=== PATIENT | male | born 1985 | race Caucasian/White ===

== ENCOUNTER → 2020-02-12 | Outpatient (CLI) | payer BC, SELFPAY | END | disposition home or self-care (01) | PROVIDERS: Visit Provider Family Medicine | DX: Z03.818 Encounter for observation for suspected exposure to other biological agents ruled out (principal) | CPT/HCPCS: 87635; U0003 ==

== ENCOUNTER → 2022-03-02 | Outpatient (CLI) | payer BC, SELFPAY ==
[2022-03-02 13:32] LABS: ALB/GLOB Ratio 1.3 RATIO (0.9-2.4); AST(SGOT) 30 U/L (15-37); Alanine Aminotransfer ALT/SGPT 40 U/L (16-61); Albumin, Serum 4.3 g/dL (3.2-5.0); Alkaline Phosphatase 66 U/L (45-117); Anion Gap 6 (5-15); BUN 9 mg/dL (7-18); BUN/Creat Ratio 9.6 RATIO (10-20); Calcium,Total 9.3 mg/dL (8.5-10.1); Chloride 106 mmol/L (98-107); Creatinine, Serum 0.94 mg/dL (0.70-1.30); EST Glomerular Filtration Rate 98 mL/min (>60); Est Glom Filt Rate - Afr Amer 118 mL/min (>60); Globulin 3.3 g/dL (2.2-4.2); Glucose 100 mg/dL (74-106); Protein, Total 7.6 g/dL (6.4-8.2); Sodium Level 137 mmol/L (136-145)
[2022-03-02 14:04] LABS: Hemoglobin A1c 5.2 % (3.8-5.6)
== END | disposition home or self-care (01) ==
LOC: BFHLAB 10:27
PROVIDERS: PCP Family Medicine; Visit Provider Family Medicine
DX: Z00.01 Encounter for general adult medical examination with abnormal findings (principal); R73.01 Impaired fasting glucose
CPT/HCPCS: 36415; 80053; 83036

== ENCOUNTER 2022-03-31 09:32 | Emergency (ER) | payer BC, SELFPAY ==
[2022-03-31 09:33] VITALS: BP 150/90; PULSE 102; RESP 16; TEMP 37.1; O2SAT 99; BMI 25.9
--- NOTE | 2022-03-31 10:01 | CT_ITS ---
STUDY: CT ABDOMEN AND PELVIS WITH CONTRAST REASON FOR EXAM: Male, 36 years old. rectal pain -- IV PO Contrast PINK TINGED MUCUS FROM RECTUM, INGUINAL HERNIA REPAIR, SMOKER RADIATION DOSAGE (If Supplied By Facility): CTDIvol = ( 12.79 ) mGy, DLP = ( 851.78 ) mGycm TECHNIQUE: Transaxial images were obtained from the dome of the diaphragm to the symphysis pubis with oral contrast. IV 100mL Isovue-300 was administered. Sagittal and coronal images were reconstructed. Individualized dose optimization techniques were used for this CT. COMPARISON: None. FINDINGS: The visualized lung bases are unremarkable. The liver is mildly enlarged at 17.84 cm. Normal liver parenchyma. No intrahepatic biliary duct dilatation or liver mass. Normal gallbladder and extrahepatic biliary system. The spleen is mildly enlarged, measuring 13 cm. The splenic parenchyma is normal. There is also prominence of the splenic and portal veins as well as multiple venous varices of the central abdomen, consistent with portal vein hypertension. Normal pancreas. Normal bilateral adrenal glands. Normal right kidney. Normal left kidney. . No hydronephrosis or renal masses. No visualized radiopaque stones. Normal visualized stomach. Normal small intestine. There is mild thickening of the posterior of the middle one third sigmoid colon with focal luminal narrowing, see image 95/132 series 2. Moderate circumferential thickening and lobulation of the wall/inner mucosa of the rectosigmoid junction down to the anus is also present see image #108/132 series 2. Acute sigmoiditis and proctitis is present likely inflammatory in nature. Mild perirectal inflammatory stranding and congestion of the vessels is also present. Close follow-up will be required to ensure the process resolves and does not represent an occult malignancy. Normal remaining aspects of the colon. No visualized colonic diverticula. No bowel dilatation or obstruction. No free air or free fluid. The appendix is visualized and appears normal. Normal abdominal aorta. Normal inferior vena cava. Normal retroperitoneum. Normal urinary bladder. Normal abdominal wall. Normal osseous structures. CT/Abdomen/Pelvis WITH Contrast IMPRESSION: 1. There is mild thickening of the posterior of the middle one third sigmoid colon with focal luminal narrowing, see image 95/132 series 2. Moderate circumferential thickening and lobulation of the wall/inner mucosa of the rectosigmoid junction down to the anus is also present see image #108/132 series 2. Acute sigmoiditis and proctitis is present likely inflammatory in nature. 2. Mild perirectal inflammatory stranding and congestion of the vessels is also present. 3. Close follow-up will be required to ensure the process resolves and does not represent an occult malignancy. 4. Normal remaining aspects of the colon. No visualized colonic diverticula. 5. Mild hepatomegaly and splenomegaly 6. Portal vein hypertension Electronically Signed: Miguel Mckeon MD at 12:27 EST ,
--- NOTE | 2022-03-31 10:02 | EX.ED.DYSGE1 ---
HPI History of Present Illness Chief Complaint: Other, Pain/Inj Detail of Chief Complaint: Rectal pain Informant: patient Onset/Context/Timing Onset: Days Context: Gradual Onset Current Severity: Mild Maximum Severity: Moderate Narrative Narrative: Patient presents with rectal pain for the past 5 days. He states he initially thought he had a hemorrhoid. He is tried some suppositories and [id number] creams without improvement. He states when he sits down to have a bowel movement he has extreme rectal pain. He has been passing some blood-tinged mucus. He had a low-grade fever on Wednesday. Has been having chills each evening. No urinary symptoms. [facility] Medical History (Updated 03/31/22 @ 13:[address] Carmina Cruz MD) Anxiety Medical History no medical history no medical history Home Medications ciprofloxacin HCl 500 mg tablet (Cipro) 500 mg PO BID #20 tabs 03/31/22 [Rx Last Taken Unknown] metronidazole 500 mg tablet 500 mg PO Q8H 10 days #30 tabs 03/31/22 [Rx Last Taken Unknown] sertraline 50 mg tablet 25 mg PO DAILY 03/31/22 [History Last Taken Unknown] Allergy/AdvReac Type Severity Reaction Status Date / Time No Known Allergies Allergy Verified 03/31/22 09:35 Surgical History History of inguinal hernia repair Social History Smoking Status: Current every day smoker tobacco type: cigarettes ROS ROS ED Constitutional Constitutional ED: Reports fever(s); Denies chills Eyes Eyes: Denies change in vision or discharge from eye(s) ENT ENT ED: Denies discharge from eye(s), rhinorrhea or sore throat Cardiovascular Cardiovascular: Denies chest pain or palpitations Respiratory/Chest Respiratory/Chest: Denies cough or dyspnea Gastrointestinal Gastrointestinal: Reports diarrhea and other Details: Rectal pain ; Denies abdominal pain, nausea or vomiting Genitourinary Genitourinary ED: Denies dysuria Musculoskeletal Musculoskeletal: Denies back pain or extremity pain Integumentary Denies Abrasions or rash Neurologic Neurologic: Denies headache(s) or weakness Allergic/Immunologic Allergic/Immunologic ED: Denies lip swelling or urticaria EXAM Physical Exam Const Vital Signs: 03/31/22 09:33 03/31/22 10:15 Temperature 98.7 F Temperature Source Temporal Pulse Rate 102 H Respiratory Rate 16 Respiratory Pattern Normal Blood Pressure 150/90 H Blood Pressure Mean 110 Pulse Ox 99 Oxygen Delivery Method Room Air Positive well nourished and well developed General Appearance ED: well developed HEENT Reports normocephalic and head/scalp atraumatic Eyes PERRL and EOMs intact bilaterally Neck supple Chest Wall inspection of chest normal and palpation of chest normal Resp normal respiratory effort and clear to auscultation bilaterally Cardio regular rate and regular rhythm GI non-tender Auscultation: hypoactive bowel sounds Palpation: soft Extremity normal to inspection Neuro oriented x3 and no sensory deficits noted Sensorium / Orientation: alert Motor Exam: strength 5/5 throughout Psych mental status grossly normal Skin no rashes or lesions noted MDM MDM MDM Narrative Medical decision making narrative: Lab work and urinalysis obtained. CT scan of the abdomen and pelvis with contrast ordered. Lab Data Attestation: I reviewed the patient's lab results. Labs: Laboratory Results - last 24 hr 03/31/22 03/31/22 03/31/22 10:10 10:15 10:15 WBC 5.9 RBC 4.85 Hgb 15.4 Hct 42.5 MCV 87.6 MCH 31.8 MCHC 36.2 H RDW Std Deviation 38.4 RDW Coeff of Leonides 11.9 Plt Count 212 MPV 9.6 Immature Gran % (Auto) 0.200 Neut % (Auto) 78.0 H Lymph % (Auto) 9.[address] [place] % (Auto) 11.5 H Eos % (Auto) 0.7 Baso % (Auto) 0.5 Absolute Neuts (auto) 4.6 Absolute Lymphs (auto) 0.54 L Nucleated RBC % 0 Sodium 135 L Potassium 3.6 Chloride 104 Carbon Dioxide 26.0 Anion Gap 5 BUN 10 Creatinine 0.87 Estim Creat Clear Calc 135.21 Est GFR (MDRD) Af Amer 129 Est GFR (MDRD) Non-Af 107 BUN/Creatinine Ratio 11.5 Glucose 105 Calcium 9.0 Urine Color Yellow Urine Clarity Clear Urine pH 6.0 Ur Specific [place] 1.015 Urine Protein 15 H Urine Glucose (UA) Normal Urine Ketones Negative Urine Occult Blood 10 H Urine Nitrite Negative Urine Bilirubin Negative Urine Urobilinogen 1 H Ur Leukocyte Esterase Negative Urine RBC 0-5 SEEN Urine WBC 0-5 SEEN Ur Squamous Epith Cells 0 SEEN Urine Bacteria 1+ Urine Mucus 3+ Radiography Diagnostic Testing: Clinical Impression(s) from Imaging Studies Abdomen/Pelvis CT 03/31/22 10:01 IMPRESSION: 1. There is mild thickening of the posterior of the middle one third sigmoid colon with focal luminal narrowing, see image 95/132 series 2. Moderate circumferential thickening and lobulation of the wall/inner mucosa of the rectosigmoid junction down to the anus is also present see image #108/132 series 2. Acute sigmoiditis and proctitis is present likely inflammatory in nature. 2. Mild perirectal inflammatory stranding and congestion of the vessels is also present. 3. Close follow-up will be required to ensure the process resolves and does not represent an occult malignancy. 4. Normal remaining aspects of the colon. No visualized colonic diverticula. 5. Mild hepatomegaly and splenomegaly 6. Portal vein hypertension Electronically Signed: Miguel Mckeon MD at 12:27 EST Reading Location ID and State: [address] [place] [address] , Service support , Treatment and Re-Evaluation Narrative: CBC and chemistry studies unremarkable. Urinalysis reveals no acute infection. CT scan of the abdomen and pelvis reveals thickening of the middle one third of the sigmoid colon with focal narrowing. There is thickening at the rectosigmoid junction down to the anus. Patient be treated with Cipro and Flagyl. I will also refer him to GI. I advised him that he will need to follow-up for a scope once his acute infection is resolved to ensure no acute abnormalities. He voices understanding and agreement. Discharge Plan Triage Chief Complaint: Other, Pain/Inj ED Provider: Carmina Cruz Dx/Rx/DC Orders Clinical Impression: Colitis Instructions: ED Understanding Colitis Prescriptions: New ciprofloxacin HCl [Cipro] 500 mg tablet 500 mg PO BID Qty: 20 0RF metronidazole 500 mg tablet 500 mg PO Q8H 10 Days Qty: 30 0RF No Action sertraline 50 mg tablet 25 mg PO DAILY Label Comments: TAKE 1/2 (ONE-HALF) TO 1 (ONE) TABLET BY MOUTH DAILY Primary Care Provider: Frank Simmons Referrals: Frank Simmons DO [Primary Care Provider] - 1 Week Friend,Ananth, DO [Med Staff - Active Staff] - As soon as possible Activity Restrictions/Additional Instructions: Please follow-up with your primary care physician in 1 week. Return to the ER for any worsening symptoms or concerns. You have been referred to YENNIFER Mon for follow-up as well. Please follow-up with him within the next 1 to 2 months. Disposition Disposition: Home, Self Care
[2022-03-31 10:16] LABS: Squamous Epithelial Cells - UA 0 SEEN /hpf (0-5)
[2022-03-31 10:20] LABS: Color, Urine Yellow (Yellow); Glucose, Dipstick Normal (Normal); Ketone-Dipstick Negative (Negative); Leukocyte Esterase-Dipstick Negative /ul (Negative); Nitrite-Dipstick Negative (Negative); Occult Blood-Urine 10 /ul (Negative); Protein-Dipstick 15 mg/dl (Negative); Specific Gravity, Urine 1.015 (1.002-1.030); Urine Bilirubin Dipstick Negative (Negative); Urine Clarity Clear (Clear); Urine Urobilinogen 1 mg/dl (Normal)
[2022-03-31] MEDS: 0.9% Normal Saline 1,000 ML 150 ML IV (10:20)
[2022-03-31 10:33] LABS: White Blood Cells 0-5 SEEN /hpf (0-5)
[2022-03-31 10:34] LABS: Bacteria 1+ /hpf (None Seen); Mucous, Urine 3+ /hpf (<or=2+); Red Blood Cells-Urine 0-5 SEEN /hpf (0-5)
[2022-03-31 10:43] LABS: Absolute Lymphocyte Count 0.54 X10^3/uL (0.83-4.51); Absolute Neutrophil Count 4.6 X10^3/uL (2.0-7.7); Basophil# 0.03 X10^3/uL; Basophil% 0.5 % (0-1); Eosinophil# 0.04 X10^3/uL; Eosinophils% 0.7 % (0-5); Hematocrit 42.5 % (40-54); Hemoglobin 15.4 g/dL (13.0-16.5); Lymphocyte # 0.54 X10^3/ul (0.83-4.51); Lymphocyte % 9.1 % (19-41); Mean Corp Hgb Conc 36.2 g/dL (32-36); Mean Corpuscular Hgb 31.8 pg (27.0-32.0); Mean Corpuscular Volume 87.6 fL (80-94); Mean Platelet Vol. 9.6 fl (6.2-12.0); Monocyte# 0.68 X10^3/uL; Monocyte% 11.5 % (0-10); NRBC Flagged by Analyzer 0 % (0-5); Neutrophil # 4.62 X10^3/uL (2.7-7.7); POSITIVE DIFFERENTIAL YES; Platelet Count 212 K/mm3 (150-450); RBC Distribution Width CV 11.9 % (11.6-14.6); RBC Distribution Width SD 38.4 fl (35.1-43.9); Red Blood Count 4.85 M/mm3 (4.6-6.2); White Blood Count 5.9 K/mm3 (4.4-11.0)
[2022-03-31 10:45] LABS: Differential Indicated SCAN CRITERIA MET
[2022-03-31 10:57] LABS: Anion Gap 5 (5-15); BUN 10 mg/dL (7-18); BUN/Creat Ratio 11.5 RATIO (10-20); Chloride 104 mmol/L (98-107); Creatinine, Serum 0.87 mg/dL (0.70-1.30); EST Glomerular Filtration Rate 107 mL/min (>60); Est Glom Filt Rate - Afr Amer 129 mL/min (>60); Estimated Creatinine Clearance 135.21 ml/min; Glucose 105 mg/dL (74-106); Potassium 3.6 mmol/L (3.5-5.1); Sodium Level 135 mmol/L (136-145)
[2022-03-31] MEDS: metroNIDAZOLE 500 MG Tablet PO (14:01)
[2022-03-31] MEDS: Ciprofloxacin 500 MG Tablet PO (14:01)
[2022-03-31 14:06] VITALS: PULSE 72; RESP 16; O2SAT 100
== END 2022-03-31 14:06 | disposition home or self-care (01) ==
PROVIDERS: Emergency Provider Emergency Medicine; PCP Family Medicine; Visit Provider Emergency Medicine
DX: K52.9 Noninfective gastroenteritis and colitis, unspecified (principal); F17.210 Nicotine dependence, cigarettes, uncomplicated
CPT/HCPCS: 74177; 80048; 81001; 85025; 99283; J7030; Q9967

== ENCOUNTER 2022-04-02 20:14 | Emergency (ER) | payer BC, SELFPAY ==
[2022-04-02 20:15] VITALS: BP 138/73; PULSE 89; RESP 18; TEMP 36.7; O2SAT 97; BMI 25.9
--- NOTE | 2022-04-02 20:39 | EDS_ITS ---
HPI HPI - GI History of Present Illness Chief Complaint: Abd Pain Informant: patient Abdominal Pain/Flank Pain Onset: Weeks (1) Context: Gradual Onset Timing: Continuous and Waxes and wanes Quality: Aching, Cramping and Sharp Location: - (Lower abdomen radiating into rectum, as well as epigastric pain) Nausea/Vomiting/Emesis GI Symptom: Positive for Nausea (when increased pain); Negative for Vomiting Diarrhea/Melena/Hematochezia GI Symptom: Positive for Diarrhea and Hematochezia Onset: Weeks (1) Stool Quality: Positive for Loose Associated Symptoms Associated Symptoms: Positive for - (brown discoloration and difficult to get started); Negative for Dysuria, Frequency, Hematuria or Urgency Narrative Narrative: Patient presents for continued discomfort in his lower abdomen and now epigastrium radiating up into his chest along with hiccups and belching at times, he was seen here for this 2 days ago and had labs and a CT that showed nonspecific colitis favoring inflammatory causes and a white blood count around 5.8. He was prescribed Cipro and Flagyl empirically and referred to GI, he states the antibiotics are not fixing anything and I am not getting better. He has tenesmus, occasional blood with diarrhea and mucus in the diarrhea as well. No fevers or chills. No suspicious food intake prior to this or recent travel out of the area. Today was the first day he ate in the last couple days and is seem to be worse after that. He also states that his urine has looked brownish, and he is thinking this may be due to his antibiotics since it started after the started those, he is on day #3 of the antibiotics. [facility] Medical History Anxiety Home Medications ciprofloxacin HCl 500 mg tablet (Cipro) 500 mg PO BID #20 tabs 03/31/22 [Rx Last Taken Unknown] metronidazole 500 mg tablet 500 mg PO Q8H 10 days #30 tabs 03/31/22 [Rx Last Taken Unknown] sertraline 50 mg tablet 25 mg PO DAILY 03/31/22 [History Last Taken Unknown] dicyclomine 10 mg capsule 20 mg PO Q6H PRN PRN abdominal discomfort #30 CAPSULES 04/02/22 [Rx Last Taken Unknown] promethazine 25 mg tablet 25 mg PO Q6H PRN PRN Nausea #20 TABLETS 04/02/22 [Rx Last Taken Unknown] Allergy/AdvReac Type Severity Reaction Status Date / Time No Known Allergies Allergy Verified 04/02/22 20:17 Surgical History History of inguinal hernia repair Social History Smoking Status: Current every day smoker tobacco type: cigarettes ROS ROS ED Constitutional Constitutional ED: Denies chills or fever(s) Eyes Eyes: Denies change in vision or diplopia ENT ENT ED: Denies rhinorrhea or sore throat Cardiovascular Cardiovascular: Reports chest pain; Denies palpitations Respiratory/Chest Respiratory/Chest: Denies cough or dyspnea Gastrointestinal Gastrointestinal: Reports as per HPI, abdominal pain, diarrhea, hematochezia and nausea; Denies vomiting Genitourinary Genitourinary ED: Denies dysuria or hematuria Musculoskeletal Musculoskeletal: Denies back pain or neck pain Integumentary Denies abscess or rash Neurologic Neurologic: Denies headache(s), paresthesias or weakness Psychiatric Psychiatric: Denies anxiety or suicidal thoughts EXAM Physical Exam Const Vital Signs: 04/02/22 20:15 04/02/22 21:45 Temperature 98.0 F Temperature Source Temporal Pulse Rate 89 79 Respiratory Rate 18 16 Blood Pressure 138/73 H 121/71 H Blood Pressure Mean 94 87 Pulse Ox 97 97 Oxygen Delivery Method Room Air Room Air Positive well nourished and well developed Constitutional Narrative: Well-appearing in no distress General Appearance ED: well developed and NAD HEENT Reports moist mucous membranes normocephalic and atraumatic Eyes PERRL and EOMs intact bilaterally Neck full ROM and supple Resp normal respiratory effort and clear to auscultation bilaterally Cardio regular rate, regular rhythm and no murmurs Rate: Negative for tachycardic GI non-distended GI Narrative: Mild tenderness epigastrium and the lower abdomen. No guarding or rebound tenderness. Auscultation: normoactive bowel sounds Palpation: soft Back/Spine no CVA tenderness General Back: other FROM Extremity normal to inspection General Extremety ED: Negative for edema, pulses abnormal or tenderness General Extremity: Negative for edema or pulses abnormal Neuro oriented x3, CN's II-XII intact bilaterally and no sensory deficits noted Sensorium / Orientation: awake and alert Motor Exam: strength 5/5 throughout Psych mental status grossly normal and thought process normal Skin no rashes or lesions noted and no wounds MDM MDM MDM Narrative Medical decision making narrative: Given the patient's white blood count [address] and his [address] results, as I discussed with him I am not surprised that the antibiotics have not fixed this, it is a version of empiric treatment given that infectious etiologies are in the differential although less likely in his particular scenario at this time. I discussed the need for colonoscopy and further GI evaluation which does not need to be done emergently. In the meantime since he was having discolored urine, I repeated his labs to trend them and did a urinalysis well giving him IV fluids and medications for his symptoms. His labs are still normal with no significant change in his white blood count. Liver enzymes and lipase normal. Still waiting for him to provide a urine if he wants to at this time. Patient did feel a little better with IV fluids, Zofran, Toradol, dicyclomine, and a GI cocktail containing simethicone. Since he has started the antibiotics I recommend finishing the course. Think this is less likely Salmonella, Shigella, or other acute bacterial etiology but he is covering nose with the antibiotics he is on. Recommend calling GI after the holiday to follow-up with soon as possible. We will prescribe him dicyclomine to use as needed for pain as well as Phenergan for nausea. Lab Data Attestation: I reviewed the patient's lab results. Labs: Laboratory Results - last 24 hr 04/02/22 04/02/22 20:45 20:45 WBC 6.8 RBC 4.72 Hgb 14.5 Hct 40.9 MCV 86.7 MCH 30.7 MCHC 35.5 RDW Std Deviation 37.2 RDW Coeff of Leonides 11.6 Plt Count 223 MPV 9.7 Immature Gran % (Auto) 0.300 Neut % (Auto) 72.1 H Lymph % (Auto) 15.8 L [place] % (Auto) 9.1 Eos % (Auto) 2.4 Baso % (Auto) 0.3 Absolute Neuts (auto) 4.9 Absolute Lymphs (auto) 1.07 Nucleated RBC % 0 Sodium 138 Potassium 3.5 Chloride 104 Carbon Dioxide 23.0 Anion Gap 11 BUN 13 Creatinine 0.89 Estim Creat Clear Calc 132.17 Est GFR (MDRD) Af Amer 126 Est GFR (MDRD) Non-Af 104 BUN/Creatinine Ratio 14.6 Glucose 102 Calcium 8.9 Total Bilirubin 0.70 AST 25 ALT 30 Alkaline Phosphatase 60 Total Protein 7.3 Albumin 3.6 Globulin 3.7 Albumin/Globulin Ratio 1.0 Lipase 57 L Discharge Plan Triage Chief Complaint: Abd Pain ED Provider: Ranjit Mccullough Dx/Rx/DC Orders Clinical Impression: Colitis Instructions: ED Understanding Colitis Prescriptions: New dicyclomine 10 mg capsule 20 mg PO Q6H PRN PRN (Reason: abdominal discomfort) Qty: 30 0RF promethazine [promethazine] 25 mg tablet 25 mg PO Q6H PRN PRN (Reason: Nausea) Qty: 20 0RF No Action sertraline 50 mg tablet 25 mg PO DAILY Label Comments: TAKE 1/2 (ONE-HALF) TO 1 (ONE) TABLET BY MOUTH DAILY ciprofloxacin HCl [Cipro] 500 mg tablet 500 mg PO BID Qty: 20 0RF metronidazole 500 mg tablet 500 mg PO Q8H 10 Days Qty: 30 0RF Primary Care Provider: Frank Simmons Referrals: Frank Simmons DO [Primary Care Provider] - Ananth Parish DO [Med Staff - Active Staff] - As soon as possible (call for appt) Disposition Disposition: Home, Self Care
[2022-04-02] MEDS: Ondansetron 4 MG/2 ML Vial IV (20:48)
[2022-04-02] MEDS: Mag Hydrox/Al Hydrox/Simeth 30 ML UDC PO (20:48)
[2022-04-02] MEDS: Ketorolac 15 MG/ML Vial IV (20:49)
[2022-04-02] MEDS: Dicyclomine 10 MG Capsule 20 MG PO (20:49)
[2022-04-02] MEDS: 0.9% Normal Saline 1,000 ML 1000 ML IV (20:53)
[2022-04-02 20:54] LABS: Absolute Lymphocyte Count 1.07 X10^3/uL (0.83-4.51); Absolute Neutrophil Count 4.9 X10^3/uL (2.0-7.7); Basophil# 0.02 X10^3/uL; Basophil% 0.3 % (0-1); Eosinophil# 0.16 X10^3/uL; Eosinophils% 2.4 % (0-5); Hematocrit 40.9 % (40-54); Hemoglobin 14.5 g/dL (13.0-16.5); Lymphocyte # 1.07 X10^3/ul (0.83-4.51); Lymphocyte % 15.8 % (19-41); Mean Corp Hgb Conc 35.5 g/dL (32-36); Mean Corpuscular Hgb 30.7 pg (27.0-32.0); Mean Corpuscular Volume 86.7 fL (80-94); Mean Platelet Vol. 9.7 fl (6.2-12.0); Monocyte# 0.62 X10^3/uL; Monocyte% 9.1 % (0-10); NRBC Flagged by Analyzer 0 % (0-5); Neutrophil % 72.1 % (47-70); Platelet Count 223 K/mm3 (150-450); RBC Distribution Width CV 11.6 % (11.6-14.6); RBC Distribution Width SD 37.2 fl (35.1-43.9); Red Blood Count 4.72 M/mm3 (4.6-6.2); White Blood Count 6.8 K/mm3 (4.4-11.0)
[2022-04-02 21:22] LABS: AST(SGOT) 25 U/L (15-37); Alanine Aminotransfer ALT/SGPT 30 U/L (16-61); Albumin, Serum 3.6 g/dL (3.2-5.0); Alkaline Phosphatase 60 U/L (45-117); Anion Gap 11 (5-15); BUN 13 mg/dL (7-18); BUN/Creat Ratio 14.6 RATIO (10-20); Calcium,Total 8.9 mg/dL (8.5-10.1); Chloride 104 mmol/L (98-107); Creatinine, Serum 0.89 mg/dL (0.70-1.30); EST Glomerular Filtration Rate 104 mL/min (>60); Est Glom Filt Rate - Afr Amer 126 mL/min (>60); Estimated Creatinine Clearance 132.17 ml/min; Globulin 3.7 g/dL (2.2-4.2); Glucose 102 mg/dL (74-106); Lipase 57 U/L (73-393); Potassium 3.5 mmol/L (3.5-5.1); Protein, Total 7.3 g/dL (6.4-8.2); Sodium Level 138 mmol/L (136-145)
[2022-04-02 21:45] VITALS: BP 121/71; PULSE 79; RESP 16; O2SAT 97
[2022-04-02 21:51] LABS: Color, Urine Amber (Yellow); Glucose, Dipstick Normal (Normal); Leukocyte Esterase-Dipstick 100 /ul (Negative); Nitrite-Dipstick Positive (Negative); Occult Blood-Urine 10 /ul (Negative); Protein-Dipstick 30 mg/dl (Negative); Urine Clarity Sl. Cloudy (Clear); Urine Urobilinogen 1 mg/dl (Normal)
[2022-04-02 21:57] LABS: Urine Bilirubin Dipstick 1 mg/dL (Negative)
[2022-04-02 22:01] LABS: Ketone-Dipstick 150 mg/dl (Negative)
[2022-04-02 22:03] LABS: Red Blood Cells-Urine 0-5 SEEN /hpf (0-5); Squamous Epithelial Cells - UA 0-5 SEEN /hpf (0-5); White Blood Cells 0-5 SEEN /hpf (0-5)
[2022-04-02 22:04] LABS: Bacteria 2+ /hpf (None Seen); Mucous, Urine 1+ /hpf (<or=2+)
== END 2022-04-02 22:12 | disposition home or self-care (01) ==
PROVIDERS: Emergency Provider Emergency Medicine; PCP Family Medicine; Visit Provider Emergency Medicine
DX: K52.9 Noninfective gastroenteritis and colitis, unspecified (principal); F17.210 Nicotine dependence, cigarettes, uncomplicated
CPT/HCPCS: 80053; 81001; 83690; 85025; 87086; 96374; 96375; 99282; J7030; A4216; J2405

== ENCOUNTER 2022-04-03 17:22 | Emergency (ER) | payer BC, SELFPAY ==
[2022-04-03 17:28] VITALS: BP 119/88; PULSE 101; RESP 18; TEMP 35.8; O2SAT 98; BMI 25.9
--- NOTE | 2022-04-03 18:05 | US_ITS ---
STUDY: ABDOMINAL ULTRASOUND - RIGHT UPPER QUADRANT REASON FOR VISIT: Male, 36 years old. ABDOMEN PAIN PAIN-midline TECHNIQUE: Ultrasound evaluation of the right upper quadrant was performed with real-time and static nye-scale imaging. TECHNICAL QUALITY: Adequate. COMPARISON: None FINDINGS: Liver: There is normal echogenicity of the liver. The bile ducts are within normal limits. There is hepatic color flow. The direction of portal flow is hepatopetal. There is no demonstrated mass lesion. Gallbladder: Normal distended gallbladder. The gallbladder wall measures 3 mm. There is a negative sonographic Andres''s sign. There is no pericholecystic fluid. There are no gallstones. Common Bile Duct (C.B.D.): The common bile duct measures ( in mm): 3 Pancreas: Normal size of the head, body of the pancreas. There is normal echogenicity of the pancreas. There is no demonstrated pancreatic mass or cyst. Right Kidney: Normal size of the right kidney. The right kidney measures 12.4 cm. . Normal renal cortex. There is no demonstrated renal mass or cyst. There is no right hydronephrosis. Aorta: It is not visualized. There is too much overlying bowel gas. . US/Gallbladder IMPRESSION: No acute findings. 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 (i.e. Measuring a kidney on an US does not correlate with an exact same measurement on a CT.) Electronically Signed: Venu Miller MD at 19:05 EST ,
--- NOTE | 2022-04-03 18:09 | EDS_ITS ---
HPI <CARLIE Byrnes - Last Filed: 04/03/22 19:51> History of Present Illness Chief Complaint: General Illness Narrative Narrative: 36-year-old male with history of anxiety, depression presents to the emergency department for the third time in the last 3 days. Patient states that on the , he was seen for abdominal pain, diarrhea, generalized body aches. Patient was diagnosed with inflammatory colitis. He was placed on Flagyl, Cipro. Patient was seen back in the emergency department yesterday, he was given Phenergan, Bentyl. His laboratory studies were grossly unremarkable, and he was told to follow-up with GI. Today, the patient states he feels generalized body aches, he still feels dehydrated. Patient states he does still have diarrhea however it is decreasing. He also complains of pain in the right upper quadrant. Total time of him being ill was 8 days today. He denies any fevers or has subjective chills. PFSH <CARLIE Byrnes - Last Filed: 04/03/22 19:51> PFSH Medical History Anxiety Home Medications ciprofloxacin HCl 500 mg tablet (Cipro) 500 mg PO BID #20 tabs 03/31/22 [Rx Last Taken Unknown] metronidazole 500 mg tablet 500 mg PO Q8H 10 days #30 tabs 03/31/22 [Rx Last Taken Unknown] sertraline 50 mg tablet 25 mg PO DAILY 03/31/22 [History Last Taken Unknown] dicyclomine 10 mg capsule 20 mg PO Q6H PRN PRN abdominal discomfort #30 CAPSULES 04/02/22 [Rx Last Taken Unknown] promethazine 25 mg tablet 25 mg PO Q6H PRN PRN Nausea #20 TABLETS 04/02/22 [Rx Last Taken Unknown] prednisone 20 mg tablet 60 mg PO DAILY 5 days #15 tabs 04/03/22 [Rx Last Taken Unknown] Allergy/AdvReac Type Severity Reaction Status Date / Time No Known Allergies Allergy Verified 04/03/22 17:27 Surgical History History of inguinal hernia repair Social History Smoking Status: Current every day smoker tobacco type: cigarettes ROS <CARLIE Byrnes - Last Filed: 04/03/22 19:51> ROS ED ROS Narrative Constitutional: Negative for weight loss, weakness. Positive for fever and chills Eyes: Negative for vision loss, vision change, double vision ENT: Negative for any sore throat, ear pain, congestion Cardiovascular: Negative for any chest pain, tightness. Positive palpitations Respiratory: Negative for any cough, sputum production, hemoptysis, dyspnea, dyspnea on exertion, orthopnea Gastrointestinal: Negative for any nausea, vomiting, constipation, blood in stool, blood in vomit. Positive for abdominal pain, diarrhea : Negative for any urinary frequency, dysuria, retention, blood in urine Muscle skeletal: Negative for any muscle joint pain, stiffness, arthralgias, neck pain, back pain. Positive for myalgias Neurological: Negative for any headache, syncope, numbness or tingling, dizziness Skin: Negative for any rashes, lumps, itching, abrasions, lacerations Psychiatric: Negative for any depression, anxiety, stress, suicidal ideation, homicidal ideation Hematologic: Negative for any easy bruising, excessive bruising, easy bleeding Allergies: Negative for any eczema, hives, rash EXAM <CARLIE Byrnes - Last Filed: 04/03/22 19:51> Physical Exam Narrative Exam Narrative: Vital signs reviewed. Patient appears to be in a position of comfort. Patient is in no distress. HEET: Head normocephalic atraumatic, TMs clear bilaterally. Posterior pharynx is clear, moist mucous membranes. Nares clear bilaterally. Neck: Supple with no lymphadenopathy or tenderness. No signs of meningismus, negative jolt sign. Cardiac: Regular rate and rhythm no murmurs gallops or rubs, equal peripheral pulses bilaterally. Respiratory: Lungs clear to auscultation bilaterally. No chest tenderness. Abdomen: Soft, nondistended. No abdominal bruit or pulsatile masses. No hepatosplenomegaly. Patient did have some tenderness to the right upper quadrant. Extremities: No peripheral edema, no signs of gross trauma or deformity. Active full range of motion of all extremities. Neuro: Cranial nerves II through XII intact, no focal neurological deficits. Skin: Clean dry and intact with no rash, purpura, petechiae, vesicles or pustules. Backs/flank: No CVA tenderness, no midline spinal tenderness, no deformity. Psych: Normal mood and affect. No SI, HI or acute psychosis. Const Vital Signs: 04/03/22 17:28 04/03/22 17:44 04/03/22 20:06 Temperature 96.4 F L Temperature Source Temporal Pulse Rate 101 H 75 Respiratory Rate 18 18 Respiratory Effort Normal Respiratory Pattern Normal Blood Pressure 119/88 H 138/72 H Blood Pressure Mean 98 Pulse Ox 98 100 Oxygen Delivery Method Room Air <Dr. Graham Villareal DO - Last Filed: 04/03/22 20:14> Physical Exam Const Vital Signs: 04/03/22 17:28 04/03/22 17:44 04/03/22 20:06 Temperature 96.4 F L Temperature Source Temporal Pulse Rate 101 H 75 Respiratory Rate 18 18 Respiratory Effort Normal Respiratory Pattern Normal Blood Pressure 119/88 H 138/72 H Blood Pressure Mean 98 Pulse Ox 98 100 Oxygen Delivery Method Room Air MDM <CARLIE Byrnes - Last Filed: 04/03/22 19:51> [facility] Lab Data Labs: Laboratory Results - last 24 hr 04/03/22 04/03/22 04/03/22 18:15 18:15 18:15 WBC 7.7 RBC 4.64 Hgb 14.3 Hct 40.1 MCV 86.4 MCH 30.8 MCHC 35.7 RDW Std Deviation 37.2 RDW Coeff of Leonides 11.7 Plt Count 253 MPV 9.4 Immature Gran % (Auto) 0.300 Neut % (Auto) 65.4 Lymph % (Auto) 20.0 [place] % (Auto) 11.6 H Eos % (Auto) 2.2 Baso % (Auto) 0.5 Absolute Neuts (auto) 5.0 Absolute Lymphs (auto) 1.53 Nucleated RBC % 0 Atypical Lymphocytes 1+ Platelet Estimate ADEQUATE RBC Morphology N CHROM Anisocytosis RARE Sodium 138 Potassium 3.6 Chloride 107 Carbon Dioxide 26.0 Anion Gap 5 BUN 9 Creatinine 0.87 Estim Creat Clear Calc 135.21 Est GFR (MDRD) Af Amer 129 Est GFR (MDRD) Non-Af 107 BUN/Creatinine Ratio 10.4 Glucose 106 Lactic Acid 0.9 Calcium 8.6 Total Bilirubin 0.60 AST 24 ALT 30 Alkaline Phosphatase 60 Total Protein 7.2 Albumin 3.5 Globulin 3.7 Albumin/Globulin Ratio 0.9 Lipase 75 Urine Color Urine Clarity Urine pH Ur Specific Baker Urine Protein Urine Glucose (UA) Urine Ketones Urine Occult Blood Urine Nitrite Urine Bilirubin Urine Urobilinogen Ur Leukocyte Esterase Urine RBC Urine WBC Ur Squamous Epith Cells Amorphous Sediment Urine Bacteria Urine Mucus 04/03/22 18:25 WBC RBC Hgb Hct MCV MCH MCHC RDW Std Deviation RDW Coeff of Leonides Plt Count MPV Immature Gran % (Auto) Neut % (Auto) Lymph % (Auto) [place] % (Auto) Eos % (Auto) Baso % (Auto) Absolute Neuts (auto) Absolute Lymphs (auto) Nucleated RBC % Atypical Lymphocytes Platelet Estimate RBC Morphology Anisocytosis Sodium Potassium Chloride Carbon Dioxide Anion Gap BUN Creatinine Estim Creat Clear Calc Est GFR (MDRD) Af Amer Est GFR (MDRD) Non-Af BUN/Creatinine Ratio Glucose Lactic Acid Calcium Total Bilirubin AST ALT Alkaline Phosphatase Total Protein Albumin Globulin Albumin/Globulin Ratio Lipase Urine Color Briseida Urine Clarity Sl. Cloudy Urine pH 6.5 Ur Specific Baker 1.020 Urine Protein 30 H Urine Glucose (UA) Normal Urine Ketones 150 A* Urine Occult Blood 10 H Urine Nitrite Positive H Urine Bilirubin 1 H Urine Urobilinogen Normal Ur Leukocyte Esterase 100 H Urine RBC 0-5 SEEN Urine WBC 5-10 SEEN Ur Squamous Epith Cells 0-5 SEEN Amorphous Sediment 1+ URATE Urine Bacteria RARE Urine Mucus 3+ Radiography Diagnostic Testing: Clinical Impression(s) from Imaging Studies Gallbladder Ultrasound 04/03/22 18:05 IMPRESSION: No acute findings. Note: Renal size measurements and size measurements of other organs etc may vary depending on modality and instrument operator dependent variations in measurements. (i.e. Measuring a kidney on an US does not correlate with an exact same measurement on a CT.) Electronically Signed: Venu Miller MD at 19:05 EST Reading Location ID and State: [facility] / [place] , Service support , Chest X-Ray 04/03/22 18:27 IMPRESSION: No radiographic evidence of acute cardiopulmonary disease. Electronically Signed: Landen Garza MD at 18:40 EST , Treatment and Re-Evaluation Narrative: Patient appears to be in minor distress, secondary to abdominal pain, nausea. Patient presents the [facility] apartment for ongoing symptoms such as diarrhea, abdominal pain. Patient did receive a CT scan of the abdomen pelvis on March. Patient did receive a full abdominal work-up. Patient's laboratory values show normal CBC, patient's chemistries were grossly unremarkable. Patient's lactic acid was negative. Patient's urinalysis was negative for any infection however did show some nitrites some ketones with 100 leukocyte esterase, however this is similar to the patient's urine yesterday will be sent for culture, patient's not have any urinary symptoms. This could be from dehydration. Patient's rapid COVID, influenza was unremarkable. Patient did receive a chest x-ray two-view which was inter by ER physician, this showed no acute cardiopulmonary disease. Patient also received an ultrasound of the right upper quadrant, this showed no acute findings. I did speak with Dr. Parish gastroenterology, he recommended the patient's stop the the antibiotics, he states steroids 60 mg daily for 5 days. He will given Solu-Medrol 125 mg here. He will also take the dicyclomine. He will see Dr. Parish within the next week. Patient is happy with plan of care, he was given return precautions. Patient stable for discharge. <Dr. Graham Villareal, DO - Last Filed: 04/03/22 20:14> [facility] Narrative Medical decision making narrative: This patient was seen with a PA/STRATEGIC PROCUREMENT MANAGER Individually assessed they patient including history and physical. I have reviewed everything on the chart that is available and agree with the documentation provided by the PA/STRATEGIC PROCUREMENT MANAGER including discussion about the assessment, treatment plan, discussion, and return precautions. Patient again today has lab work which is unremarkable. His chest x-ray on my interpretation shows no acute cardiopulmonary process and radiologist agree. Viral testing is negative. Right upper quadrant ultrasound is negative. Discussed with Dr. Parish who recommended starting the patient on steroids with Solu-Medrol given in the ER. He recommends prednisone 60 mg p.o. daily x5 days and treatment with dicyclomine. Dr. Friend will try to get him in for close follow-up. Lab Data Labs: Laboratory Results - last 24 hr 04/03/22 04/03/22 04/03/22 18:15 18:15 18:15 WBC 7.7 RBC 4.64 Hgb 14.3 Hct 40.1 MCV 86.4 MCH 30.8 MCHC 35.7 RDW Std Deviation 37.2 RDW Coeff of Leonides 11.7 Plt Count 253 MPV 9.4 Immature Gran % (Auto) 0.300 Neut % (Auto) 65.4 Lymph % (Auto) 20.0 [place] % (Auto) 11.6 H Eos % (Auto) 2.2 Baso % (Auto) 0.5 Absolute Neuts (auto) 5.0 Absolute Lymphs (auto) 1.53 Nucleated RBC % 0 Atypical Lymphocytes 1+ Platelet Estimate ADEQUATE RBC Morphology N CHROM Anisocytosis RARE Sodium 138 Potassium 3.6 Chloride 107 Carbon Dioxide 26.0 Anion Gap 5 BUN 9 Creatinine 0.87 Estim Creat Clear Calc 135.21 Est GFR (MDRD) Af Amer 129 Est GFR (MDRD) Non-Af 107 BUN/Creatinine Ratio 10.4 Glucose 106 Lactic Acid 0.9 Calcium 8.6 Total Bilirubin 0.60 AST 24 ALT 30 Alkaline Phosphatase 60 Total Protein 7.2 Albumin 3.5 Globulin 3.7 Albumin/Globulin Ratio 0.9 Lipase 75 Urine Color Urine Clarity Urine pH Ur Specific Baker Urine Protein Urine Glucose (UA) Urine Ketones Urine Occult Blood Urine Nitrite Urine Bilirubin Urine Urobilinogen Ur Leukocyte Esterase Urine RBC Urine WBC Ur Squamous Epith Cells Amorphous Sediment Urine Bacteria Urine Mucus 04/03/22 18:25 WBC RBC Hgb Hct MCV MCH MCHC RDW Std Deviation RDW Coeff of Leonides Plt Count MPV Immature Gran % (Auto) Neut % (Auto) Lymph % (Auto) [place] % (Auto) Eos % (Auto) Baso % (Auto) Absolute Neuts (auto) Absolute Lymphs (auto) Nucleated RBC % Atypical Lymphocytes Platelet Estimate RBC Morphology Anisocytosis Sodium Potassium Chloride Carbon Dioxide Anion Gap BUN Creatinine Estim Creat Clear Calc Est GFR (MDRD) Af Amer Est GFR (MDRD) Non-Af BUN/Creatinine Ratio Glucose Lactic Acid Calcium Total Bilirubin AST ALT Alkaline Phosphatase Total Protein Albumin Globulin Albumin/Globulin Ratio Lipase Urine Color Briseida Urine Clarity Sl. Cloudy Urine pH 6.5 Ur Specific Baker 1.020 Urine Protein 30 H Urine Glucose (UA) Normal Urine Ketones 150 A* Urine Occult Blood 10 H Urine Nitrite Positive H Urine Bilirubin 1 H Urine Urobilinogen Normal Ur Leukocyte Esterase 100 H Urine RBC 0-5 SEEN Urine WBC 5-10 SEEN Ur Squamous Epith Cells 0-5 SEEN Amorphous Sediment 1+ URATE Urine Bacteria RARE Urine Mucus 3+ Radiography Diagnostic Testing: Clinical Impression(s) from Imaging Studies Gallbladder Ultrasound 04/03/22 18:05 IMPRESSION: No acute findings. Note: Renal size measurements and size measurements of other organs etc may vary depending on modality and instrument operator dependent variations in measurements. (i.e. Measuring a kidney on an US does not correlate with an exact same measurement on a CT.) Electronically Signed: Venu Miller MD at 19:05 EST , Chest X-Ray 04/03/22 18:27 IMPRESSION: No radiographic evidence of acute cardiopulmonary disease. Electronically Signed: Landen Garza MD at 18:40 EST , Discharge Plan Triage Chief Complaint: General Illness ED Midlevel Provider: Master Munguia ED Provider: Graham Villareal Dx/Rx/DC Orders Clinical Impression: Colitis, Acute dehydration Instructions: ED Understanding Colitis, ED Dehydration (Adult) Prescriptions: New prednisone 20 mg tablet 60 mg PO DAILY 5 Days Qty: 15 0RF No Action sertraline 50 mg tablet 25 mg PO DAILY Label Comments: TAKE 1/2 (ONE-HALF) TO 1 (ONE) TABLET BY MOUTH DAILY ciprofloxacin HCl [Cipro] 500 mg tablet 500 mg PO BID Qty: 20 0RF metronidazole 500 mg tablet 500 mg PO Q8H 10 Days Qty: 30 0RF dicyclomine 10 mg capsule 20 mg PO Q6H PRN PRN (Reason: abdominal discomfort) Qty: 30 0RF promethazine [promethazine] 25 mg tablet 25 mg PO Q6H PRN PRN (Reason: Nausea) Qty: 20 0RF Primary Care Provider: Frank Simmons Referrals: Frank Simmons DO [Primary Care Provider] - Ananth Parish DO [Med Staff - Active Staff] - Activity Restrictions/Additional Instructions: I discussed your case with Dr. Parish. You need to see him for further work-up. I did speak with him and he states that he will see you as soon as possible possibly this upcoming week please take the Bentyl. Take the steroids until finished. You no longer need to take the antibiotics. Disposition Disposition: Home, Self Care Discharge Date/Time: 04/03/22 20:07
[2022-04-03] MEDS: Ondansetron 4 MG/2 ML Vial IV ×2 (18:20→19:49)
[2022-04-03] MEDS: Ketorolac 15 MG/ML Vial IV (18:20)
[2022-04-03] MEDS: 0.9% Normal Saline 1,000 ML 1000 ML IV (18:21)
[2022-04-03 18:24] LABS: Absolute Lymphocyte Count 1.53 X10^3/uL (0.83-4.51); Basophil# 0.04 X10^3/uL; Basophil% 0.5 % (0-1); Eosinophil# 0.17 X10^3/uL; Eosinophils% 2.2 % (0-5); Hematocrit 40.1 % (40-54); Hemoglobin 14.3 g/dL (13.0-16.5); Lymphocyte # 1.53 X10^3/ul (0.83-4.51); Mean Corp Hgb Conc 35.7 g/dL (32-36); Mean Corpuscular Hgb 30.8 pg (27.0-32.0); Mean Corpuscular Volume 86.4 fL (80-94); Mean Platelet Vol. 9.4 fl (6.2-12.0); Monocyte# 0.89 X10^3/uL; Monocyte% 11.6 % (0-10); NRBC Flagged by Analyzer 0 % (0-5); Neutrophil % 65.4 % (47-70); POSITIVE MORPHOLOGY YES; Platelet Count 253 K/mm3 (150-450); RBC Distribution Width CV 11.7 % (11.6-14.6); RBC Distribution Width SD 37.2 fl (35.1-43.9); Red Blood Count 4.64 M/mm3 (4.6-6.2); White Blood Count 7.7 K/mm3 (4.4-11.0)
[2022-04-03 18:25] LABS: Differential Indicated SCAN CRITERIA MET
--- NOTE | 2022-04-03 18:27 | RAD_ITS ---
EXAM: XR CHEST, 2 VIEWS CLINICAL INDICATION: chest pain TECHNIQUE: Frontal and lateral views of the chest. This report was created using [employer] report generation technology. COMPARISON: None. FINDINGS: LUNGS AND PLEURAL SPACES: Unremarkable. No consolidation or edema. No pneumothorax. No effusion. HEART: Unremarkable. Cardiac silhouette not enlarged. MEDIASTINUM: Central airways and mediastinal contour are unremarkable. BONES/JOINTS: Unremarkable. SOFT TISSUES: Unremarkable. RAD/Chest PA and Lateral IMPRESSION: No radiographic evidence of acute cardiopulmonary disease. Electronically Signed: Landen Garza MD at 18:40 EST ,
[2022-04-03 18:35] LABS: Color, Urine Amber (Yellow); Glucose, Dipstick Normal (Normal); Leukocyte Esterase-Dipstick 100 /ul (Negative); Nitrite-Dipstick Positive (Negative); Occult Blood-Urine 10 /ul (Negative); Protein-Dipstick 30 mg/dl (Negative); Urine Clarity Sl. Cloudy (Clear); Urine Urobilinogen Normal (Normal); Urine pH 6.5 (5.0 - 8.0)
[2022-04-03 18:36] LABS: Urine Bilirubin Dipstick 1 mg/dL (Negative)
[2022-04-03 18:37] LABS: Ketone-Dipstick 150 mg/dl (Negative)
[2022-04-03 18:42] LABS: ALB/GLOB Ratio 0.9 RATIO (0.9-2.4); AST(SGOT) 24 U/L (15-37); Alanine Aminotransfer ALT/SGPT 30 U/L (16-61); Albumin, Serum 3.5 g/dL (3.2-5.0); Alkaline Phosphatase 60 U/L (45-117); Anion Gap 5 (5-15); BUN 9 mg/dL (7-18); BUN/Creat Ratio 10.4 RATIO (10-20); Calcium,Total 8.6 mg/dL (8.5-10.1); Chloride 107 mmol/L (98-107); Creatinine, Serum 0.87 mg/dL (0.70-1.30); EST Glomerular Filtration Rate 107 mL/min (>60); Est Glom Filt Rate - Afr Amer 129 mL/min (>60); Estimated Creatinine Clearance 135.21 ml/min; Globulin 3.7 g/dL (2.2-4.2); Glucose 106 mg/dL (74-106); Lipase 75 U/L (73-393); Potassium 3.6 mmol/L (3.5-5.1); Protein, Total 7.2 g/dL (6.4-8.2); Sodium Level 138 mmol/L (136-145)
[2022-04-03 18:42] LABS: White Blood Cells 5-10 SEEN /hpf (0-5)
[2022-04-03 18:43] LABS: Amorphous Sediment 1+ URATE; Bacteria RARE /hpf (None Seen); Mucous, Urine 3+ /hpf (<or=2+); Red Blood Cells-Urine 0-5 SEEN /hpf (0-5); Squamous Epithelial Cells - UA 0-5 SEEN /hpf (0-5)
[2022-04-03 18:48] LABS: Lactic Acid 0.9 mmol/L (0.4-1.9)
[2022-04-03 19:04] LABS: Anisocytosis RARE; Atypical Lymphocyte 1+ %; Platelet Estimate ADEQUATE (ADEQ); Red Cell Morphology N CHROM NORMAL (NORM C&C)
[2022-04-03] MEDS: MethylPREDNISolone 125 MG/2 ML Vial IV (19:49)
[2022-04-03] MEDS: Morphine 4 MG/ML Syringe IV (19:49)
[2022-04-03 20:06] VITALS: BP 138/72; PULSE 75; RESP 18; O2SAT 100
== END 2022-04-03 20:07 | disposition home or self-care (01) ==
PROVIDERS: Nurse Practitioner; Emergency Provider Student in an Organized Health Care Education/Training Program; PCP Family Medicine; Visit Provider Student in an Organized Health Care Education/Training Program
DX: K52.9 Noninfective gastroenteritis and colitis, unspecified (principal); E86.0 Dehydration; F17.210 Nicotine dependence, cigarettes, uncomplicated; F41.9 Anxiety disorder, unspecified; F32.A Depression, unspecified; Z79.899 Other long term (current) drug therapy
CPT/HCPCS: 71046; 76705; 80053; 81001; 83605; 83690; 85025; 87428; 96361; 96374; 96375; 96376; 99284; J7030; A4216; J2405

== ENCOUNTER → 2022-04-24 | Outpatient (CLI) | payer BC, SELFPAY ==
[2022-04-24 13:11] LABS: Erythrocyte Sedimentation Rate 12 mm/hr (0-20)
[2022-04-24 13:50] LABS: Rubella IgG Reactive (Nonreactive); Vitamin B12 337 pg/mL (211-911)
[2022-04-24 13:54] LABS: CRP < 2.90 mg/L (0.0-3.0); Ferritin 182 ng/mL (26-388); Free T3 3.6 pg/mL (2.18-3.98); LDH 136 U/L (87-241); Thyroid Stim Hormone (TSH) 1.43 uIU/mL (0.358-3.74)
[2022-04-27 14:07] LABS: Anti-Centromere B Ab <0.2 AI (0.0-0.9); Anti-Chromatin <0.2 AI (0.0-0.9); Anti-Jo <0.2 AI (0.0-0.9); Anti-Scleroderma-70 AB <0.2 AI (0.0-0.9); RNP Ab 1.5 AI (0.0-0.9); SJOGREN'S Anti-SS-A test < 0.2 AI (0.0-0.9); SJOGREN'S Anti-SS-B test < 0.2 AI (0.0-0.9); Smith Ab <0.2 AI (0.0-0.9)
[2022-04-27 16:08] LABS: Endomysial Antibody IgA Negative (Negative)
[2022-04-27 19:04] LABS: Anti-Mitochondrial AB <20.0 Units (0.0-20.0); Anti-dsDNA Ab <1 IU/mL (0-9)
[2022-04-27 19:08] LABS: Immunoglobulin A 158 mg/dL (90-386); t-Transglutaminase IgA 3 U/mL (0-3)
[2022-04-29 08:10] LABS: Albumin 3.9 g/dL (2.9-4.4); Alpha-1-Globulins 0.3 g/dL (0.0-0.4); Alpha-2-Globulins 0.9 g/dL (0.4-1.0); Angiotensin Convert Enzyme 22 U/L (14-82); Ceruloplasmin 21.4 mg/dL (16.0-31.0); Cytoplasmic Ab (C-ANCA) <1:20 titer (Neg:<1:20); HEPATITIS B SURFACE AG Negative (Negative); Hep C Antibodies <0.1 s/co ratio (0.0-0.9); Hepatitis A IgM Antibody Negative (Negative); Hepatitis B Core AB IgM Negative (Negative); Immunoglobulin A 154 mg/dL (90-386); Immunoglobulin E 4 IU/mL (6-495); Immunoglobulin G 914 mg/dL (603-1613); Immunoglobulin M 98 mg/dL (20-172); PROEL- TOTAL PROTEIN 7.1 g/dL (6.0-8.5); QNTFERON TB Mitogen Value > 10.00 IU/mL (.); QNTFERON TB Nil Value 1.21 IU/mL (.); QNTFERON TB1+ Ag Value 0.02 IU/mL (.); QNTFERON TB2+ Ag Value 0.02 IU/mL (.)
[2022-04-29 14:04] LABS: Anti-Smooth Muscle ABS 8 Units (0-19); Copper, Serum or Plasma 107 ug/dL (69-132); Mumps Antibody, IgM < 0.80 AU (0.00-0.79); Perinuclear Ab (P-ANCA) <1:20 titer (Neg:<1:20); V-Zoster IgG (Immunity) 273 index (Immune >165)
[2022-04-29 14:05] LABS: B. pertussis IgG 1.91 index (0.00-0.94); QNTIFERON TB Positive Criteria Negative (Negative)
== END | disposition home or self-care (01) ==
PROVIDERS: PCP Family Medicine; Visit Provider Internal Medicine Gastroenterology
DX: K50.10 Crohn's disease of large intestine without complications (principal)
CPT/HCPCS: 36415; 80074; 82164; 82390; 82525; 82607; 82728; 82784; 82785; 83516; 83615; 84165; 84443; 84481; 85652; 86140; 86225; 86235; 86255; 86256; 86334; 86480; 86615; 86735; 86762; 86787

== ENCOUNTER → 2022-04-29 | Outpatient (CLI) | payer BC, SELFPAY ==
[2022-05-02 20:16] LABS: Calprotectin, Stool 24 ug/g (0-120)
[2022-05-06 16:58] LABS: Pancreatic Elastase, Fecal 62 (>200)
== END | disposition home or self-care (01) ==
LOC: LABSPEC 07:06
PROVIDERS: PCP Family Medicine; Referring Provider Internal Medicine Gastroenterology; Visit Provider Internal Medicine Gastroenterology
DX: K50.10 Crohn's disease of large intestine without complications (principal)
CPT/HCPCS: 82653; 83630; 83993; 87177; 87209; 87329; 87506

== ENCOUNTER 2022-05-26 12:04 | Day surgery (SDC) | payer BC, SELFPAY ==
[2022-05-26] VITALS (7 sets, daily range): BP systolic 98–138; BP diastolic 68–86; PULSE 71–87; RESP 16–18; TEMP 36.6–36.7; O2SAT 95–99; BMI 25.6
[2022-05-26] MEDS: Lactated Ringers 1,000 ML 15 ML IV (12:20)
--- NOTE | 2022-05-26 12:29 | PCM.HP.BLA ---
History and Physical Date of Admission: 05/26/22 kamryn established with this clinic 04.24.22 as a [facility] ED follow up.? [facility] ED presentation 03.31.22 with 5 days of rectal pain, blood tinged mucus, low grade fever with chills. Imaging and biochemical workup performed finding nonspecific colitis and discharged with cipro and flagyl. ? CT abd/pel 03.31.22 noting hepatomegaly 17.84cm; splenomegaly 13cm; prominence of splenic and portal veins; multiple venous varices of central abdomen consistent with portal HTN. Mild thickening of middle third sigmoid colon with focal luminal narrowing; moderate circumferential thickening and lobulation of RS junction to anus; acute sigmoiditis and proctitis; perirectal inflammatory stranding and congestion of vessels also present [facility] ED presentation 04.02.22 with similar symptoms and the inclusion of abdominal/epigastric pain. Diagnosed with inflammatory colitis and discharged with dicyclomine and phenergan. ? US RUQ 04.03.22 with normal echogenicity of liver. No acute/chronic findings. ? CXR 04.03.22 without evidence of cardiopulmonary disease. [facility] ED presentation 04.03.22 with similar symptoms, though improvement of diarrhea. He was give IV solumedrol and PO steroids 60mg x 5 days. PCP 04.07.22- cont. pred. taper. Stilll some discomfort in colon. Some blood in tools PCP 04.16.22- cont. discomfort with BM and fatigue. Put back on Prednisone 60mg. Pt reports still having discomfort with bowel movements. Says he can feel the stool moving through bowels before a movement. Goes 4-5 times a day having to have multiple movements to completely evacuate. Abdominal pain better after BM. Has had no blood in stools since 04/21 but some mucus. Had added more solid foods back into diet while still avoiding raw veggies, nuts, seeds and spices. Pt reports also having increased acid reflux typically in the mornings before meals. Was previously on Omeprazole for 2 weeks and then stopped. Unsure if this was helpful or not. Has never had scopes. ? ROS Const Constitutional: Positive for fatigue and weight change ENT ENT: No difficulty swallowing Gastro GI: Positive for abdominal pain, diarrhea, heartburn and Blood in stool; No belching, bloating, change in bowel habits, change in stool character, coffee ground emesis, constipation, cramping, difficulty swallowing, feeling full early, excessive flatus, incontinent of stools, Vomiting blood/hematemesis, loose stools, Black,tarry stools, nausea/dyspepsia, pain with swallowing, vomiting or other Musc Musculoskeletal: No joint pain Skin Skin: No yellowing of the eye or itchy eyes Psych Psychiatric: Positive for anxiety and No depression Endo Endocrine: Positive for fatigue and weight change Aller/Imm Allergy/Immunologic: No itchy eyes Freddy/Lymp Hematologic/Lymphatic: No easy bleeding or easy bruising Exam Const General: cooperative and comfortable Nutritional Appearance: average body habitus and well nourished [facility] Head: normal to inspection Ears: hearing grossly normal bilaterally Nose: external nose normal Face and sinus: normal facial exam Mouth: oral mucosae normal Throat: posterior oropharynx normal Eyes General: appearance normal, both eyes and all related structures Neck Neck: normal visual inspection Chest Chest palpation & inspection: normal inspection of the chest and normal palpation of entire chest wall Resp Effort & Inspection: normal respiratory effort Auscultation: Bilateral: Clear to Auscultation Cardio Palpation: normal PMI Rate: regular rate Rhythm: regular rhythm GI Inspection: normal to inspection Auscultation: normal bowel sounds Percussion: normal to percussion Palpation: no hepatosplenomegaly Skin General: no rashes or lesions noted Neuro General: patient alert Extrem General: normal to inspection Psych Affect: normal affect Quality Reporting Tobacco Screening ([facility] 138) Smoking Status: Current every day smoker Assessment and Plan Assessment and Plan (1) Crohn's colitis: ?Status:?Acute ?Plan: He is experiencing extraintestinal manifestations of inflammatory bowel disease with new onset psoriasis and eczema-like rashes in his scalp.? However after going on prednisone therapy his rash on his elbows and his scalp has resolved.? Also his diarrhea and abdominal pain resolved.? I think it is likely more than not that he does have ulcerative colitis or Crohn's disease.? We will perform an IBD SGI along with biochemical work-up for inflammatory bowel disease and possible any other autoimmune disease that may be mimicking.? He will also undergo colonoscopy for evaluation of his lower GI tract (2) GERD (gastroesophageal reflux disease): ?Status:?Acute ?Plan: He is having symptoms of gastroesophageal reflux disease and has been having for quite some time.? After he undergoes a colonoscopy he will undergo a EGD to evaluate his upper GI tract. ? ? ? Orders: Orders Anti-Mitochondrial AB Today K50.10 - Crohn's disease of large intestine without complications ? Angiotensin Convert Enzyme Today K50.10 - Crohn's disease of large intestine without complications ? ANCA Today K50.10 - Crohn's disease of large intestine without complications ? Anti-Smooth Muscle ABS Today K50.10 - Crohn's disease of large intestine without complications ? Celiac Disease Profile Today K50.10 - Crohn's disease of large intestine without complications ? Ceruloplasmin Today K50.10 - Crohn's disease of large intestine without complications ? Rubella IgG Today K50.10 - Crohn's disease of large intestine without complications ? CRP Today K50.10 - Crohn's disease of large intestine without complications ? Ferritin Today K50.10 - Crohn's disease of large intestine without complications ? LDH Today K50.10 - Crohn's disease of large intestine without complications ? Erythrocyte Sed Rate Today K50.10 - Crohn's disease of large intestine without complications ? KAREN Comprehensive Panel Today K50.10 - Crohn's disease of large intestine without complications ? Hepatitis Panel Acute Today K50.10 - Crohn's disease of large intestine without complications ? Immunoglobulin E Today K50.10 - Crohn's disease of large intestine without complications ? SAHARA + Protein Elect, Serum Today K50.10 - Crohn's disease of large intestine without complications ? Mumps Antibody, IgM Today K50.10 - Crohn's disease of large intestine without complications ? B. pertussis IgG Today K50.10 - Crohn's disease of large intestine without complications ? Quantiferon TB-Gold+ Today K50.10 - Crohn's disease of large intestine without complications ? V-Zoster IgG (Immunity) Today K50.10 - Crohn's disease of large intestine without complications ? Miscellaneous Lab Procedure Today K50.10 - Crohn's disease of large intestine without complications ? Vitamin B12 Today K50.10 - Crohn's disease of large intestine without complications ? Free T3 Today K50.10 - Crohn's disease of large intestine without complications ? Thyroid Stim Hormone (TSH) Today K50.10 - Crohn's disease of large intestine without complications ? Calprotectin, Stool Today K50.10 - Crohn's disease of large intestine without complications ? OVA+PARA w/Giardia EIA [id number] Today K50.10 - Crohn's disease of large intestine without complications ? CDIFF (PCR) Today K50.10 - Crohn's disease of large intestine without complications ? ENTERIC PATHOGEN PANEL STOOL Today K50.10 - Crohn's disease of large intestine without complications, K58.9 - Irritable bowel syndrome without diarrhea ? Stool Lactoferrin/WBC Today K50.10 - Crohn's disease of large intestine without complications, K58.9 - Irritable bowel syndrome without diarrhea ? Pancreatic Elastase, Fecal Today K50.10 - Crohn's disease of large intestine without complications ? Copper, Serum or Plasma Today K50.10 - Crohn's disease of large intestine without complications ? I have examined the patient and the H&P has been reviewed. There are no clinical changes since date of exam.
--- NOTE | 2022-05-26 13:15 | IMM_PTH ---
PATIENT: LETTY VIZCARRA LOC: EN U#:[id number] AGE/SX: 36/M ROOM: RE05/26/[address]: Dr. Ananth Parish DO : 1985 BED: DIS: 05/26/2022 SPEC #: [id number] RECD: 05/27/22 13:26 STATUS: WILDER REQ #: [id number] TUCKER: 05/26/22 13:[address]: Ananth Parish DEPT: IMMUNOHISTOCHEMISTRY RECD BY: Demi Fraga ENTERED: 05/27/22 13:27 SP TYPE: IMMUNO OTHR DR: Dr. Frank Simmons, Tissues: A - Stomach, NOS Procedures: H Pylori (initial) PHYSICIAN & INSTITUTION [place] [id number] SPECIMEN INFORMATION: Tissue Source: A ? Gastric ulcer Clinical Info: Crohn?s colitis, GERD Specimen Number: [id number] CPT code: 60842 METHODOLOGY: Deparaffinized sections of prefer/formalin-fixed tissue or PAP/DQ stained slides are incubated with monoclonal/polyclonal antibodies/oligonucleotide probes. Localization is made via biotin free immunoperoxidase method. Appropriate controls are performed and reacted as expected. Results on target cell population are indicated in the following table: RESULTS: ANTIBODY / CLONE RESULT Block A H Pylori (polyclonal) negative These tests were developed and their performance characteristics determined by [facility]. They may not have been cleared or approved by the U.S. Food and Drug Administration. The FDA has determined that such clearance or approval is not necessary. The above immunohistochemical/dualISH markers are ordered and reviewed by the Pathologist. INTERPRETATION: A. Gastric ulcer, biopsy: Negative for Helicobacter pylori organisms. SJ:naima 05/28/2022
--- NOTE | 2022-05-26 13:15 | COLBX_PTH ---
PATIENT: LETTY VIZCARRA LOC: EN U#:[id number] AGE/SX: 36/M ROOM: RE05/26/[address]: Dr. Ananth Parish DO : 1985 BED: DIS: 05/26/2022 SPEC #: [id number] RECD: 05/26/22 16:55 STATUS: WILDER KAREEM #: [id number] TUCKER: 05/26/22 13:[address]: Ananth Parish DEPT: SURGICAL PATHOLOGY RECD BY: Johnson Dumont ENTERED: 05/27/22 09:48 SP TYPE: COLON BX OTHR DR: Dr. Frank Simmons, Tissues: A - Gastric mucous membrane B - Duodenum, NOS C - Esophagus, NOS D - Ileum, NOS E - COLON BIOPSY Procedures: Special Stain Group II Surgery Specimen Level IV Alcian Blue/PAS (control) HEADER OPERATION: Colonoscopy, EGD ([facility]) with biopsies PRE-OP DIAGNOSIS: Crohn?s colitis, GERD TISSUE SUBMITTED: A ? Gastric ulcer biopsy, B ? Duodenum biopsy, C ? Distal esophagus biopsy, D ? Terminal ileum biopsy, E ? Random colon biopsies MICROSCOPIC DIAGNOSIS A. Gastric ulcer, biopsy: Mild gastritis. See microscopic description and comment. B. Duodenum, biopsy: Fragments of duodenal mucosa, no pathologic diagnosis. C. Distal esophagus, biopsy: Fragments of gastroesophageal mucosa with chronic inflammation. Intestinal metaplasia (goblet cell metaplasia) is not identified. See comment. D. Terminal ileum, biopsy: Fragments of small intestinal mucosa, no pathologic diagnosis. E. Colon, random biopsy: Fragments of colonic mucosa, no pathologic diagnosis. SJ:naima 05/28/2022 COMMENT A. The results of immunohistochemistry for Helicobacter pylori will be reported separately ([id number]). C. Alcian blue/PAS stain with matched control is used in the evaluation of the specimen. MICROSCOPIC DESCRIPTION Slides are reviewed. A. The specimen shows fragments of gastric mucosa with chronic inflammatory cell infiltrates in the lamina propria consisting of lymphocytes and plasma cells, consistent with mild chronic gastritis. GROSS DESCRIPTION A - Received in fixative is one container labeled with the patient's name and designated gastric ulcer biopsy. The specimen consists of two irregular fragments of light lopez soft tissue that in aggregate measure 0.7 x 0.5 x 0.1 cm. The specimen is totally submitted in one cassette. B - Received in fixative is one container labeled with the patient's name and designated duodenal biopsy. The specimen consists of two irregular fragments of light lopez soft tissue that in aggregate measure 0.5 x 0.3 x 0.1 cm. The specimen is totally submitted in one cassette. C - Received in fixative is one container labeled with the patient's name and designated distal esophagus biopsy. The specimen consists of two irregular fragments of light lopez soft tissue that in aggregate measure 0.7 x 0.5 x 0.1 cm. The specimen is totally submitted in one cassette. D - Received in fixative is one container labeled with the patient's name and designated terminal ileum biopsy. The specimen consists of multiple irregular fragments of light lopez soft tissue that in aggregate measure 1 x 0.5 x 0.1 cm. The specimen is totally submitted in one cassette. E - Received in fixative is one container labeled with the patient's name and designated random colon biopsy. The specimen consists of multiple irregular fragments of light lopez soft tissue that in aggregate measure 1.2 x 1 x 0.1 cm. The specimen is totally submitted in one cassette. / AM:naima 05/27/2022 TC:3 CPT: 39650 x5, 19800
--- NOTE | 2022-05-26 14:02 | OP.EGD_ITS ---
Patient Name: Duran Villalba Procedure Date: 05/26/2022 1:27 PM Date of : 1985 Age: 36 Procedure: Upper GI endoscopy Indications: Epigastric abdominal pain, Functional Dyspepsia Providers: Ananth Parish DO Medicines: Monitored Anesthesia Care Patient Profile: This is a 36 year old male. Refer to note in patient chart for documentation of history and physical. Patient has symptoms of chronic abdominal cramping, chronic global abdominal pain and acute dyspepsia. Complications: No immediate complications. Procedure: Pre-Anesthesia Assessment: - Prior to the procedure, a History and Physical was performed, and patient medications and allergies were reviewed. The risks and benefits of the procedure and the sedation options and risks were discussed with the patient. All questions were answered and informed consent was obtained. Patient identification and proposed procedure were verified by the physician in the pre-procedure area. Mental Status Examination: alert and oriented. Airway Examination: normal oropharyngeal airway and neck mobility. Respiratory Examination: clear to auscultation. CV Examination: normal. Prophylactic Antibiotics: The patient does not require prophylactic antibiotics. Prior Anticoagulants: The patient has taken no previous anticoagulant or antiplatelet agents. After reviewing the risks and benefits, the patient was deemed in satisfactory condition to undergo the procedure. The anesthesia plan was to use monitored anesthesia care (MAC). Immediately prior to administration of medications, the patient was re-assessed for adequacy to receive sedatives. The heart rate, respiratory rate, oxygen saturations, blood pressure, adequacy of pulmonary ventilation, and response to care were monitored throughout the procedure. The physical status of the patient was re-assessed after the procedure. After obtaining informed consent, the endoscope was passed under direct vision. Throughout the procedure, the patient's blood pressure, pulse, and oxygen saturations were monitored continuously. The Colonoscope was introduced through the mouth, and advanced to the second part of duodenum. The upper GI endoscopy was accomplished without difficulty. The patient tolerated the procedure well. Scope In: 1:35:01 PM Scope Out: 1:40:44 PM Total Procedure Duration Time 0 hours 5 minutes 43 seconds Findings: LA Grade A (one or more mucosal breaks less than 5 mm, not extending between tops of 2 mucosal folds) esophagitis with no bleeding was found 35 to 37 cm from the incisors. Biopsies were taken with a cold forceps for histology. Verification of patient identification for the specimen was done. Estimated blood loss was minimal. Patchy moderate inflammation characterized by congestion (edema) and erythema was found at the pylorus. Biopsies were taken with a cold forceps for histology. Verification of patient identification for the specimen was done. Estimated blood loss was minimal. Patchy mildly erythematous mucosa without active bleeding and with no stigmata of bleeding was found in the duodenal bulb. Biopsies were taken with a cold forceps for histology. Verification of patient identification for the specimen was done. Estimated blood loss was minimal. Impression: - LA Grade A reflux esophagitis. Biopsied. - Chronic gastritis. Biopsied. - Erythematous duodenopathy. Biopsied. Recommendation: - Discharge patient to home. - Resume previous diet. - Continue present medications. - Await pathology results. - Repeat upper endoscopy in 3 months for surveillance. Procedure Code(s): --- Professional --- 16312, Esophagogastroduodenoscopy, flexible, transoral; with biopsy, single or multiple CPT copyright 2017 [employer]. All rights reserved. The codes documented in this report are preliminary and upon melter loader review may be revised to meet current compliance requirements. Ananth Parish DO 05/26/2022 2:01:59 PM This report has been signed electronically. Number of Addenda: 0 Note Initiated On: 05/26/2022 1:27 PM
--- NOTE | 2022-05-26 14:03 | OP.CCLET_ITS ---
05/26/2022 Frank Simmons [address] [place] [address] Re : Upper GI endoscopy procedure for Duran Villalba Dear Dr. Simmons This procedure was performed on Thursday, May 26, 2022. My impressions and recommendations are as follows: Impressions : - LA Grade A reflux esophagitis. Biopsied. - Chronic gastritis. Biopsied. - Erythematous duodenopathy. Biopsied. Recommendations : - Discharge patient to home. - Resume previous diet. - Continue present medications. - Await pathology results. - Repeat upper endoscopy in 3 months for surveillance. My findings are described in the full procedure note, which is enclosed. If I can be of further assistance, please feel free to contact me at . Sincerely, Ananth Friend, 05/26/2022 2:01:59 PM This report has been signed electronically.
--- NOTE | 2022-05-26 14:09 | OP.COLON_ITS ---
Patient Name: Duran Villalba Procedure Date: 05/26/2022 1:40 PM Date of : 1985 Age: 36 Procedure: Colonoscopy Indications: Chronic diarrhea Providers: Ananth Parish DO Medicines: Monitored Anesthesia Care Patient Profile: This is a 36 year old male. Refer to note in patient chart for documentation of history and physical. Patient has symptoms of chronic abdominal cramping, chronic global abdominal pain and acute dyspepsia. Last Colonoscopy: none. The patient's first colonoscopy is today. Complications: No immediate complications. Procedure: Pre-Anesthesia Assessment: - Prior to the procedure, a History and Physical was performed, and patient medications and allergies were reviewed. The risks and benefits of the procedure and the sedation options and risks were discussed with the patient. All questions were answered and informed consent was obtained. Patient identification and proposed procedure were verified by the physician in the pre-procedure area. Mental Status Examination: alert and oriented. Airway Examination: normal oropharyngeal airway and neck mobility. Respiratory Examination: clear to auscultation. CV Examination: normal. Prophylactic Antibiotics: The patient does not require prophylactic antibiotics. Prior Anticoagulants: The patient has taken no previous anticoagulant or antiplatelet agents. After reviewing the risks and benefits, the patient was deemed in satisfactory condition to undergo the procedure. The anesthesia plan was to use monitored anesthesia care (MAC). Immediately prior to administration of medications, the patient was re-assessed for adequacy to receive sedatives. The heart rate, respiratory rate, oxygen saturations, blood pressure, adequacy of pulmonary ventilation, and response to care were monitored throughout the procedure. The physical status of the patient was re-assessed after the procedure. After I obtained informed consent, the scope was passed under direct vision. Throughout the procedure, the patient's blood pressure, pulse, and oxygen saturations were monitored continuously. The Colonoscope was introduced through the anus and advanced to the terminal ileum. The colonoscopy was performed without difficulty. The patient tolerated the procedure well. The quality of the bowel preparation was fair. Scope In: 1:43:06 PM Scope Withdrawal Time 0 hours 6 minutes 56 seconds Scope Out: 1:56:25 PM Total Procedure Duration Time 0 hours 13 minutes 19 seconds Findings: An area of mildly congested mucosa was found in the sigmoid colon, in the descending colon, at the splenic flexure, at the hepatic flexure and in the ascending colon. Biopsies were taken with a cold forceps for histology. Verification of patient identification for the specimen was done. Estimated blood loss was minimal. A patchy area of the distal ileum was congested. Biopsies were taken with a cold forceps for histology. Verification of patient identification for the specimen was done. Estimated blood loss was minimal. Impression: - Preparation of the colon was fair. - Congested mucosa in the sigmoid colon, in the descending colon, at the splenic flexure, at the hepatic flexure and in the ascending colon. Biopsied. - Congested mucosa in the distal ileum. Biopsied. Recommendation: - Discharge patient to home. - Resume previous diet. - Continue present medications. - Await pathology results. - Repeat colonoscopy in 10 years for surveillance based on pathology results. Procedure Code(s): --- Professional --- 50019, Colonoscopy, flexible; with biopsy, single or multiple CPT copyright 2017 [employer]. All rights reserved. The codes documented in this report are preliminary and upon balloon design printer review may be revised to meet current compliance requirements. Ananth Parish DO 05/26/2022 2:08:36 PM This report has been signed electronically. Number of Addenda: 0 Note Initiated On: 05/26/2022 1:40 PM
--- NOTE | 2022-05-26 14:09 | OP.CCLET_ITS ---
05/26/2022 Frank Simmons [address] [place] [address] Re : Colonoscopy procedure for Duran Bertramradha Dear Dr. Simmons This procedure was performed on Thursday, May 26, 2022. My impressions and recommendations are as follows: Impressions : - Preparation of the colon was fair. - Congested mucosa in the sigmoid colon, in the descending colon, at the splenic flexure, at the hepatic flexure and in the ascending colon. Biopsied. - Congested mucosa in the distal ileum. Biopsied. Recommendations : - Discharge patient to home. - Resume previous diet. - Continue present medications. - Await pathology results. - Repeat colonoscopy in 10 years for surveillance based on pathology results. My findings are described in the full procedure note, which is enclosed. If I can be of further assistance, please feel free to contact me at . Sincerely, Ananth Parish, 05/26/2022 2:08:36 PM This report has been signed electronically.
== END 2022-05-26 14:48 | disposition home or self-care (01) ==
LOC: EN 12:05 → AC 12:07
PROVIDERS: PCP Family Medicine; Referring Provider Family Medicine; Visit Provider Internal Medicine Gastroenterology
PROC: 0DJD8ZZ Inspection of Lower Intestinal Tract, Via Natural or Artificial Opening Endoscopic (ICD-10-PCS; CPT 45378; principal; 2022-05-26 13:10)
DX: K29.50 Unspecified chronic gastritis without bleeding (principal); K21.00 Gastro-esophageal reflux disease with esophagitis, without bleeding; K25.9 Gastric ulcer, unspecified as acute or chronic, without hemorrhage or perforation; K52.9 Noninfective gastroenteritis and colitis, unspecified; K63.89 Other specified diseases of intestine; L40.9 Psoriasis, unspecified
CPT/HCPCS: 45380; 43239; 88305; 88313; 88342; J7120; J2405

== ENCOUNTER → 2022-08-05 | Outpatient (CLI) | payer BC, SELFPAY ==
--- NOTE | 2022-08-05 07:16 | CT_ITS ---
STUDY: CTA ABDOMEN AND PELVIS WITH CONTRAST REASON FOR EXAM: Male, 37 years old. Splenic varices, mesenteric varices r/o portal hypertension RADIATION DOSAGE (If Supplied By Facility): CTDIvol = ( 27.81 ) mGy, DLP = ( 1112.17 ) mGycm TECHNIQUE: Transaxial images were obtained from the dome of the diaphragm to the symphysis pubis without oral contrast. IV 100mL Isovue-370 was administered. Sagittal and coronal images were reconstructed. 3-D images were reconstructed. Individualized dose optimization techniques were used for this CT. COMPARISON: Comparison is made with prior examination dated March 31, 2022. FINDINGS: The visualized lung bases are unremarkable. The visualized portions of the heart are within normal limits. There is decreased attenuation of the liver consistent with steatosis. Normal gallbladder and extrahepatic biliary system. Normal spleen. Normal pancreas. Normal bilateral adrenal glands. Normal right kidney. Normal left kidney. Normal visualized stomach. Normal small intestine. Normal colon. The appendix is visualized and appears normal. Normal abdominal aorta. Normal inferior vena cava. Normal retroperitoneum. Normal urinary bladder. Normal abdominal wall. Normal osseous structures. CT/CTA Abd/Pelvis W/WO Contrast IMPRESSION: Normal enhanced CT of the abdomen and pelvis. Electronically Signed: Arnaud Banegas MD at 14:44 EDT ,
== END | disposition home or self-care (01) ==
PROVIDERS: PCP Family Medicine; Visit Provider Nurse Practitioner Adult Health
DX: I86.8 Varicose veins of other specified sites (principal)
CPT/HCPCS: 74174; Q9967

== ENCOUNTER → 2022-08-07 | Outpatient (CLI) | payer BC, SELFPAY ==
[2022-08-07 15:13] LABS: EXAGEN MAILED SPECIMEN
[2022-08-07 17:33] LABS: Color, Urine Yellow (Yellow); Glucose, Dipstick Normal (Normal); Ketone-Dipstick Negative (Negative); Leukocyte Esterase-Dipstick Negative /ul (Negative); Nitrite-Dipstick Negative (Negative); Occult Blood-Urine Negative /ul (Negative); Protein-Dipstick Negative (Negative); Specific Gravity, Urine 1.015 (1.002-1.030); Urine Bilirubin Dipstick Negative (Negative); Urine Clarity Clear (Clear); Urine Urobilinogen Normal (Normal)
[2022-08-07 17:40] LABS: Prothrombin Time (Protime)PT. 13.3 SECONDS (11.7-14.9)
[2022-08-07 17:47] LABS: ALB/GLOB Ratio 1.3 RATIO (0.9-2.4); AST(SGOT) 35 U/L (15-37); Alanine Aminotransfer ALT/SGPT 67 U/L (16-61); Albumin, Serum 4.5 g/dL (3.2-5.0); Alkaline Phosphatase 78 U/L (45-117); Anion Gap 6 (5-15); BUN 13 mg/dL (7-18); BUN/Creat Ratio 13.7 RATIO (10-20); CRP < 2.90 mg/L (0.0-3.0); Calcium,Total 9.4 mg/dL (8.5-10.1); Chloride 108 mmol/L (98-107); Creatinine, Serum 0.95 mg/dL (0.70-1.30); EST Glomerular Filtration Rate 96 mL/min (>60); Est Glom Filt Rate - Afr Amer 116 mL/min (>60); Globulin 3.4 g/dL (2.2-4.2); Glucose 93 mg/dL (74-106); Potassium 3.9 mmol/L (3.5-5.1); Protein, Total 7.9 g/dL (6.4-8.2); Sodium Level 138 mmol/L (136-145)
[2022-08-07 17:48] LABS: Erythrocyte Sedimentation Rate 9 mm/hr (0-20); Protein, Urine (Random) 11.3 mg/dL (<11.9); Protein:Creat Ratio 106 mg/g CRE (0-200)
[2022-08-07 17:50] LABS: Absolute Lymphocyte Count 1.86 X10^3/uL (0.83-4.51); Basophil# 0.03 X10^3/uL; Basophil% 0.4 % (0-1); Eosinophil# 0.09 X10^3/uL; Eosinophils% 1.2 % (0-5); Hematocrit 43.5 % (40-54); Hemoglobin 15.5 g/dL (13.0-16.5); Lymphocyte # 1.86 X10^3/ul (0.83-4.51); Lymphocyte % 24.4 % (19-41); Mean Corp Hgb Conc 35.6 g/dL (32-36); Mean Corpuscular Hgb 31.4 pg (27.0-32.0); Mean Corpuscular Volume 88.1 fL (80-94); Mean Platelet Vol. 10.3 fl (6.2-12.0); Monocyte% 7.9 % (0-10); NRBC Flagged by Analyzer 0 % (0-5); Neutrophil # 5.01 X10^3/uL (2.7-7.7); Neutrophil % 65.8 % (47-70); Platelet Count 278 K/mm3 (150-450); RBC Distribution Width CV 12.1 % (11.6-14.6); RBC Distribution Width SD 38.5 fl (35.1-43.9); Red Blood Count 4.94 M/mm3 (4.6-6.2); White Blood Count 7.6 K/mm3 (4.4-11.0)
[2022-08-11 19:07] LABS: Dilute Prothrombin Time (dPT) 41.4 sec (0.0-47.6); Dilute Russell Viper Venom 47.1 sec (0.0-47.0); Hexagonal Phase Phospholipid 7 sec (0-11); PTT-LA 40.2 sec (0.0-43.5); Thrombin Time 18.8 sec (0.0-23.0); dPT Confirm Ratio 1.22 Ratio (0.00-1.34)
[2022-08-12 09:39] LABS: Interpretation Comment: (.)
== END | disposition home or self-care (01) ==
LOC: MTLAB 14:11
PROVIDERS: PCP Family Medicine; Referring Provider Internal Medicine Rheumatology; Visit Provider Internal Medicine Rheumatology
DX: L40.59 Other psoriatic arthropathy (principal); K76.6 Portal hypertension; R76.8 Other specified abnormal immunological findings in serum; L40.8 Other psoriasis; R19.5 Other fecal abnormalities
CPT/HCPCS: 36415; 80053; 81002; 82570; 84156; 85025; 85598; 85610; 85652; 85730; 86140

== ENCOUNTER → 2022-08-11 | Outpatient (CLI) | payer BC, SELFPAY ==
[2022-08-14 20:52] LABS: Calprotectin, Stool 42 ug/g (0-120)
== END | disposition home or self-care (01) ==
LOC: MTLAB 09:10
PROVIDERS: PCP Family Medicine; Referring Provider Internal Medicine Gastroenterology; Visit Provider Internal Medicine Gastroenterology
DX: R19.5 Other fecal abnormalities (principal); K76.6 Portal hypertension; K58.9 Irritable bowel syndrome, unspecified
CPT/HCPCS: 83630; 83993

== ENCOUNTER → 2022-08-20 | Outpatient (CLI) | payer BC, SELFPAY ==
--- NOTE | 2022-08-20 09:43 | US_ITS ---
STUDY: ABDOMINAL ULTRASOUND - ELASTOGRAPHY REASON FOR VISIT: Male, 37 years old. Fatty liver TECHNIQUE: Liver stiffness measurements were obtained on a Scanbuy RS 85 ultrasound machine using a CA 1-7 probe following the SRU guidelines. 3 measurements were obtained using a 2-D-SWE method. TheIQR/M was 12% suggesting a quality data set. Dozier-scale and color Doppler imaging was performed of the right upper abdominal quadrant was also performed. TECHNICAL QUALITY: Adequate. COMPARISON: 04/03/2022 FINDINGS: The liver is homogenous and normal in echogenicity and echotexture. There is no evidence of contour nodularity. No focal hepatic mass is identified. The main portal vein is normal in size and patent demonstrating hepatopetal flow. Median liver stiffness measured 3.7 kPa. The gallbladder is unremarkable without evidence of stones, wall thickening or pericholecystic fluid. Sonographic Andres''s tenderness is not appreciated. There is no evidence of intrahepatic biliary ductal dilatation. The CBD is nondilated measuring 3 mm at the level of the bhavin hepatis. The visualized portions of the pancreas are unremarkable without evidence of focal or diffuse enlargement. Specifically, the tail is obscured by overlying bowel gas. Right kidney measures 12 cm in length. It is normal in echogenicity. No focal renal lesion is identified. There is no evidence of hydronephrosis. US/ABD Limited w/ Elastography IMPRESSION: Liver stiffness measures 3.7 kPa compatible with FO (Normal) Metavir score. Normal right upper quadrant ultrasound. Electronically Signed: Mata Richardson MD at 20:58 EDT ,
== END | disposition home or self-care (01) ==
LOC: US 09:42
PROVIDERS: PCP Family Medicine; Referring Provider Internal Medicine Gastroenterology; Visit Provider Internal Medicine Gastroenterology
DX: K76.0 Fatty (change of) liver, not elsewhere classified (principal)
CPT/HCPCS: 76705; 76981

== ENCOUNTER → 2022-09-18 | Outpatient (CLI) | payer BC, SELFPAY ==
[2022-09-18 13:34] LABS: ALB/GLOB Ratio 1.3 RATIO (0.9-2.4); AST(SGOT) 33 U/L (15-37); Alanine Aminotransfer ALT/SGPT 65 U/L (16-61); Albumin, Serum 4.4 g/dL (3.2-5.0); Alkaline Phosphatase 79 U/L (45-117); Anion Gap 6 (5-15); BUN 16 mg/dL (7-18); BUN/Creat Ratio 17.3 RATIO (10-20); Calcium,Total 9.7 mg/dL (8.5-10.1); Chloride 106 mmol/L (98-107); Creatinine, Serum 0.92 mg/dL (0.70-1.30); EST Glomerular Filtration Rate 99 mL/min (>60); Est Glom Filt Rate - Afr Amer 120 mL/min (>60); Globulin 3.5 g/dL (2.2-4.2); Glucose 97 mg/dL (74-106); Potassium 4.1 mmol/L (3.5-5.1); Protein, Total 7.9 g/dL (6.4-8.2); Sodium Level 138 mmol/L (136-145)
== END | disposition home or self-care (01) ==
LOC: MTLAB 10:26
PROVIDERS: PCP Family Medicine; Referring Provider Internal Medicine Rheumatology; Visit Provider Internal Medicine Rheumatology
DX: L40.59 Other psoriatic arthropathy (principal); R76.8 Other specified abnormal immunological findings in serum
CPT/HCPCS: 36415; 80053

== ENCOUNTER → 2022-10-21 | Outpatient (CLI) | payer BC, SELFPAY ==
[2022-10-21 15:43] LABS: Vitamin B12 415 pg/mL (211-911)
== END | disposition home or self-care (01) ==
LOC: MTLAB 12:55
PROVIDERS: PCP Family Medicine; Referring Provider Internal Medicine Gastroenterology; Visit Provider Internal Medicine Gastroenterology
DX: K76.0 Fatty (change of) liver, not elsewhere classified (principal)
CPT/HCPCS: 36415; 82607; 82746

== ENCOUNTER → 2022-10-22 | Outpatient (CLI) | payer BC, SELFPAY ==
[2022-10-27 15:08] LABS: Pancreatic Elastase, Fecal 382 (>200)
== END | disposition home or self-care (01) ==
LOC: MTLAB 07:27
PROVIDERS: PCP Family Medicine; Referring Provider Internal Medicine Gastroenterology; Visit Provider Internal Medicine Gastroenterology
DX: K76.0 Fatty (change of) liver, not elsewhere classified (principal)
CPT/HCPCS: 82653

== ENCOUNTER 2022-11-09 09:23 | Outpatient (CLI) | payer OTHER, SELFPAY ==
[2022-11-12 22:06] LABS: Beef <0.10 kU/L (Class 0); Chocolate <0.10 kU/L (Class 0); Clam <0.10 kU/L (Class 0); Codfish <0.10 kU/L (Class 0); Corn <0.10 kU/L (Class 0); Egg, White <0.10 kU/L (Class 0); Egg, Whole <0.10 kU/L (Class 0); Milk (Cow) <0.10 kU/L (Class 0); Peanut <0.10 kU/L (Class 0); Pork <0.10 kU/L (Class 0); SCALLOP <0.10 kU/L (Class 0); SESAME SEED <0.10 kU/L (Class 0); Shrimp <0.10 kU/L (Class 0); Soybean <0.10 kU/L (Class 0); Walnut, (Food) <0.10 kU/L (Class 0); Wheat <0.10 kU/L (Class 0)
[2022-11-13 11:08] LABS: Albumin 4.3 g/dL (2.9-4.4); Alpha-1-Globulins 0.2 g/dL (0.0-0.4); Alpha-2-Globulins 0.7 g/dL (0.4-1.0); Ceruloplasmin 22.1 mg/dL (16.0-31.0); Copper, Serum or Plasma 100 ug/dL (69-132); Gamma Globulin 1.1 g/dL (0.4-1.8); Immunoglobulin A 155 mg/dL (90-386); Immunoglobulin G 1137 mg/dL (603-1613); Immunoglobulin M 39 mg/dL (20-172); PROEL- TOTAL PROTEIN 7.4 g/dL (6.0-8.5)
== END 2022-11-09 23:59 | disposition home or self-care (01) ==
PROVIDERS: PCP Family Medicine; Referring Provider Internal Medicine Gastroenterology; Visit Provider Internal Medicine Gastroenterology
DX: K76.0 Fatty (change of) liver, not elsewhere classified (principal); I86.8 Varicose veins of other specified sites
CPT/HCPCS: 36415; 82390; 82525; 82784; 84165; 86003; 86005; 86334

== ENCOUNTER → 2022-12-01 | Outpatient (CLI) | payer OTHER, SELFPAY ==
[2022-12-01] VITALS (9 sets, daily range): BP systolic 108–145; BP diastolic 65–93; PULSE 70–82; RESP 18; TEMP 36.7; O2SAT 94–98; BMI 29.0
--- NOTE | 2022-12-01 | LIV_PTH ---
PATIENT: LETTY VIZCARRA LOC: [place] U#:[id number] AGE/SX: 37/M ROOM: RE12/01/[address]: Dr. Ananth Parish DO : 1985 BED: DIS: 12/01/2022 SPEC #: [id number] RECD: 12/01/22 10:39 STATUS: WILDER REQ #: [id number] TUCKER: 12/01/22 00:[address]: Ananth Parish DEPT: SURGICAL PATHOLOGY RECD BY: Lakhwinder Chong ENTERED: 12/01/22 10:39 SP TYPE: LIVER RES OTHR DR: Dr. Frank Simmons DO Tissues: Liver, NOS Procedures: PAS with Diastase (control) Trichrome (control) Special Stain Group II PAS Stain (control) Surgery Specimen Level V Retic (control) Iron Stain (control) HEADER OPERATION: CT-guided liver biopsy PRE-OP DIAGNOSIS: Fatty liver TISSUE SUBMITTED: Liver 18-gauge core x3 MICROSCOPIC DIAGNOSIS Liver, CT-guided needle core biopsy: Chronic hepatitis, grade 1, stage 1. Macrovesicular steatosis, mild to moderate. See comment. AM:naima 12/02/2022 COMMENT Sections show portal inflammation without extension into adjacent liver parenchyma. Trichrome stain reveals fibrosis confined to portal areas, focally. There is diffuse macrovesicular steatosis. There is no accumulation of abnormal proteins or increased intraparenchymal iron. The hepatic parenchyma has a preserved architectural pattern. Iron, trichrome, reticulin, PAS and PASD stains with matched controls support the above diagnosis. The modified Knodell scoring system for chronic hepatitis was used in the evaluation of this case. MICROSCOPIC DESCRIPTION Slides are reviewed. GROSS DESCRIPTION Received in fixative is one container labeled with the patient's name and designated liver. The specimen consists of multiple elongated fragments of lopez soft tissue that in aggregate measure 1.5 x 0.5 x 0.1 cm. The specimen is totally submitted in one cassette. / GIBSON:naima 12/01/2022 TC:3 CPT: 32321, 77614 x5
--- NOTE | 2022-12-01 07:55 | CT_ITS ---
PROCEDURE: CT DIRECTED CORE LIVER BIOPSY INDICATION: Male, 37 years old. Portal hypertension. PHYSICIAN: Dr. Makenzie Oates CONSENT: Written informed consent was obtained having explained the risks, benefits and alternatives in detail with the patient who accepted the risks and agreed to proceed. Laboratory review and clinical assessment was performed. CONSCIOUS SEDATION PROTOCOL: The Drugs used were: 2 mg Versed, IV., and 50 mcg Fentanyl, IV. The sedation time was: 20 minutes. Conscious sedation was started at 8:45 AM and terminated at 9:05 AM. The conscious sedation protocol was independently monitored. RADIATION DOSAGE (If Supplied By Facility): CTDIvol = ( 18.5 ) mGy, DLP = ( 385.16 ) mGycm Individualized dose optimization techniques were used for this CT. TECHNIQUE: Using CT image guidance with image documentation, a suitable location in the right lobe of the liver was identified. Using an anterior approach, puncture of the liver was uneventful with an 18-gauge core needle system. 3, 18-gauge core samples were obtained, and submitted in formalin to the pathologist for further assessment. Followup CT scan revealed no distinct sequelae. CT/Biopsy/Inj or Needle Placement IMPRESSION: 1. CT directed core needle biopsy of the liver, using CT image guidance with image documentation as described. 2. Conscious Sedation protocol utilized with independent monitoring. Electronically Signed: Arnaud Banegas MD at 9:41 EDT ,
[2022-12-01 07:56] LABS: Platelet Count 253 K/mm3 (150-450)
[2022-12-01 08:05] LABS: Prothrombin Time (Protime)PT. 13.1 SECONDS (11.7-14.9)
[2022-12-01] MEDS: 0.9% Saline Lock 10 ML Syringe IV (08:35)
[2022-12-01] MEDS: Midazolam 2 MG/2 ML Syringe IV (08:45)
[2022-12-01] MEDS: fentaNYL 100 MCG/2 ML Ampul IV (08:46)
[2022-12-01] MEDS: Lidocaine 2% (20 ml mdv) 20 ML Vial INFILT (09:00)
== END | disposition home or self-care (01) ==
PROVIDERS: PCP Family Medicine; Referring Provider Internal Medicine Gastroenterology; Visit Provider Internal Medicine Gastroenterology
DX: K76.0 Fatty (change of) liver, not elsewhere classified (principal)
CPT/HCPCS: 47000; 36415; 77012; 85049; 85610; 85730; 88307; 88313; 99156; J7050; A4216

== ENCOUNTER → 2023-01-16 | Outpatient (CLI) | payer OTHER, SELFPAY ==
[2023-01-16 09:40] LABS: Absolute Lymphocyte Count 1.73 X10^3/uL (0.83-4.51); Absolute Neutrophil Count 6.5 X10^3/uL (2.0-7.7); Basophil# 0.02 X10^3/uL; Basophil% 0.2 % (0-1); Eosinophil# 0.21 X10^3/uL; Eosinophils% 2.3 % (0-5); Hematocrit 42.6 % (40-54); Hemoglobin 15.1 g/dL (13.0-16.5); Lymphocyte # 1.73 X10^3/ul (0.83-4.51); Lymphocyte % 18.6 % (19-41); Mean Corp Hgb Conc 35.4 g/dL (32-36); Mean Corpuscular Hgb 30.9 pg (27.0-32.0); Mean Corpuscular Volume 87.3 fL (80-94); Mean Platelet Vol. 9.6 fl (6.2-12.0); Monocyte# 0.76 X10^3/uL; Monocyte% 8.2 % (0-10); NRBC Flagged by Analyzer 0 % (0-5); Neutrophil # 6.54 X10^3/uL (2.7-7.7); Neutrophil % 70.5 % (47-70); Platelet Count 258 K/mm3 (150-450); RBC Distribution Width SD 38.2 fl (35.1-43.9); Red Blood Count 4.88 M/mm3 (4.6-6.2); White Blood Count 9.3 K/mm3 (4.4-11.0)
[2023-01-16 09:59] LABS: AST(SGOT) 23 U/L (15-37); Alanine Aminotransfer ALT/SGPT 51 U/L (16-61); Albumin, Serum 3.9 g/dL (3.2-5.0); Alkaline Phosphatase 80 U/L (45-117); Anion Gap 3 (5-15); BUN 14 mg/dL (7-18); BUN/Creat Ratio 15.2 RATIO (10-20); Calcium,Total 8.8 mg/dL (8.5-10.1); Chloride 109 mmol/L (98-107); Creatinine, Serum 0.92 mg/dL (0.70-1.30); EST Glomerular Filtration Rate 99 mL/min (>60); Est Glom Filt Rate - Afr Amer 120 mL/min (>60); Globulin 3.8 g/dL (2.2-4.2); Glucose 97 mg/dL (74-106); Protein, Total 7.7 g/dL (6.4-8.2); Sodium Level 139 mmol/L (136-145)
== END | disposition home or self-care (01) ==
PROVIDERS: PCP Family Medicine; Referring Provider Internal Medicine Rheumatology; Visit Provider Internal Medicine Rheumatology
DX: L40.59 Other psoriatic arthropathy (principal); Z79.899 Other long term (current) drug therapy; R76.8 Other specified abnormal immunological findings in serum
CPT/HCPCS: 36415; 80053; 85025

== ENCOUNTER → 2023-04-12 | Outpatient (CLI) | payer OTHER, SELFPAY ==
[2023-04-12 15:47] LABS: Absolute Lymphocyte Count 1.66 X10^3/uL (0.83-4.51); Absolute Neutrophil Count 5.3 X10^3/uL (2.0-7.7); Basophil# 0.02 X10^3/uL; Basophil% 0.3 % (0-1); Eosinophil# 0.11 X10^3/uL; Eosinophils% 1.4 % (0-5); Hematocrit 44.6 % (40-54); Hemoglobin 15.3 g/dL (13.0-16.5); Lymphocyte # 1.66 X10^3/ul (0.83-4.51); Lymphocyte % 21.8 % (19-41); Mean Corp Hgb Conc 34.3 g/dL (32-36); Mean Corpuscular Hgb 30.1 pg (27.0-32.0); Mean Corpuscular Volume 87.8 fL (80-94); Mean Platelet Vol. 9.7 fl (6.2-12.0); Monocyte# 0.52 X10^3/uL; Monocyte% 6.8 % (0-10); NRBC Flagged by Analyzer 0 % (0-5); Neutrophil # 5.28 X10^3/uL (2.7-7.7); Neutrophil % 69.4 % (47-70); Platelet Count 292 K/mm3 (150-450); RBC Distribution Width CV 11.9 % (11.6-14.6); RBC Distribution Width SD 38.1 fl (35.1-43.9); Red Blood Count 5.08 M/mm3 (4.6-6.2); White Blood Count 7.6 K/mm3 (4.4-11.0)
[2023-04-12 16:25] LABS: ALB/GLOB Ratio 1.2 RATIO (0.9-2.4); AST(SGOT) 31 U/L (15-37); Alanine Aminotransfer ALT/SGPT 70 U/L (16-61); Albumin, Serum 4.4 g/dL (3.2-5.0); Alkaline Phosphatase 79 U/L (45-117); Anion Gap 5 (5-15); BUN 12 mg/dL (7-18); BUN/Creat Ratio 13.3 RATIO (10-20); Calcium,Total 9.6 mg/dL (8.5-10.1); Chloride 107 mmol/L (98-107); EST Glomerular Filtration Rate 101 mL/min (>60); Est Glom Filt Rate - Afr Amer 123 mL/min (>60); Globulin 3.7 g/dL (2.2-4.2); Glucose 99 mg/dL (74-106); Protein, Total 8.1 g/dL (6.4-8.2); Sodium Level 139 mmol/L (136-145)
== END | disposition home or self-care (01) ==
LOC: MTLAB 13:27
PROVIDERS: PCP Family Medicine; Referring Provider Internal Medicine Rheumatology; Visit Provider Internal Medicine Rheumatology
DX: L40.59 Other psoriatic arthropathy (principal); Z79.899 Other long term (current) drug therapy; R76.8 Other specified abnormal immunological findings in serum
CPT/HCPCS: 36415; 80053; 85025

== ENCOUNTER → 2023-04-28 | Outpatient (CLI) | payer OTHER, SELFPAY | END | disposition home or self-care (01) | LOC: PSN 07:14 | PROVIDERS: PCP Family Medicine; Referring Provider Family Medicine; Visit Provider Family Medicine | DX: R00.2 Palpitations (principal); I49.3 Ventricular premature depolarization | CPT/HCPCS: 93225; 93226 ==

== ENCOUNTER → 2023-05-27 | Outpatient (CLI) | payer OTHER, SELFPAY ==
--- NOTE | 2023-05-27 13:58 | ECHOD_ITS ---
Reason For Study: PALPITATIONS, HTN, PVCs, PACs Procedure This was a 2D Doppler, Color Flow transthoracic echocardiogram. Exam performed in department. Left Ventricle Normal LV size. Left ventricular systolic function is normal. The estimated ejection fraction is 65 %. Normal diastololic function. No regional wall motion abnormalities noted. Right Ventricle Normal RV size. Normal systolic function. Atria Normal left atrium. Normal right atrium. Mitral Valve Normal mitral valve. Tricuspid Valve Normal tricuspid valve. Aortic Valve Normal aortic valve. Trisinus/trileaflet aortic valve. Pulmonic Valve Normal pulmonic valve. Great Vessels Normal aortic root. The pulmonary artery is normal size. Normal inferior vena cava. Pericardium/Pleural No pericardial effusion. MMode/2D Measurements & Calculations LVIDd: 5.3 cm IVSd: 0.98 cm Ao root diam: 3.0 cm LVIDs: 3.5 cm LVPWd: 0.92 cm RVDd: 3.0 cm FS: 33.2 % LAV(MOD-bp): 46.5 ml LVAd ap4: 34.7 cm2 LVAd ap2: 26.6 cm2 LAV(MOD-bp) Indexed: 21.2 ml/m2 LVLd ap4: 8.6 cm LVLd ap2: 8.4 cm LAV(MOD-sp2): 44.6 ml EDV(MOD-sp4): 114.7 ml EDV(MOD-sp2): 74.0 ml LAV(MOD-sp4): 44.6 ml EDV(sp4-el): 118.7 ml EDV(sp2-el): 71.3 ml LVAs ap4: 18.9 cm2 LVAs ap2: 14.2 cm2 LVLs ap4: 7.0 cm LVLs ap2: 6.7 cm ESV(MOD-sp4): 43.0 ml ESV(MOD-sp2): 27.6 ml ESV(sp4-el): 43.2 ml ESV(sp2-el): 25.5 ml EF(MOD-sp4): 62.6 % EF(MOD-sp2): 62.7 % EF(sp4-el): 63.6 % SV(MOD-sp4): 71.8 ml SV(MOD-sp2): 46.4 ml SV(sp4-el): 75.5 ml LA dimension(2D): 3.5 cm LA A4 area: 16.0 cm2 RA A4 area: 12.0 cm2 TAPSE: 2.1 cm Time Measurements MV dec time: 0.19 sec Doppler Measurements & Calculations MV E max vamsi: 61.0 cm/sec Lat Peak E' Vamsi: 16.5 cm/sec Med Peak E' Vamsi: 13.5 cm/sec MV A max vamsi: 46.3 cm/sec E/E' lat: 3.7 E/E' med: 4.5 MV E/A: 1.3 MV V2 max: 57.6 cm/sec MV P1/2t max vamsi: 53.6 cm/sec Ao V2 max: 124.8 cm/sec MV max P.3 mmHg MV P1/2t: 51.3 msec Ao max P.2 mmHg MV V2 mean: 31.3 cm/sec MV dec slope: 305.6 cm/sec2 Ao V2 mean: 85.7 cm/sec MV mean P.48 mmHg Ao mean P.4 mmHg MV V2 VTI: 13.3 cm MVA(P1/2t): 4.3 cm2 Ao V2 VTI: 24.6 cm AV (velocity ratio): 0.86 LV V1 max: 108.8 cm/sec PA V2 max: 85.4 cm/sec LV V1 max P.7 mmHg PA V2 mean: 58.3 cm/sec LV V1 mean P.3 mmHg LV V1 mean: 68.8 cm/sec LV V1 VTI: 21.3 cm ECHO/Echo Complete Interpretation Summary Normal LV size. Left ventricular systolic function is normal. The estimated ejection fraction is 65 %. Structurally normal valves. Ordering Physician: Frank Simmons Referring Physician: Frank Simmons Performed By: Tracy Patel, GLADISCS, RVT
== END | disposition home or self-care (01) ==
LOC: CVS 13:55
PROVIDERS: PCP Family Medicine; Referring Provider Family Medicine; Visit Provider Family Medicine
DX: I49.3 Ventricular premature depolarization (principal); I10 Essential (primary) hypertension
CPT/HCPCS: 93306

== ENCOUNTER → 2023-09-15 | Outpatient (CLI) | payer OTHER, SELFPAY ==
[2023-09-15 14:06] LABS: Free T3 3.8 pg/mL (2.18-3.98); T4 Free Direct 0.98 ng/dL (0.76-1.46); Thyroid Stim Hormone (TSH) 0.96 uIU/mL (0.358-3.74)
== END | disposition home or self-care (01) ==
LOC: LAB 11:20
PROVIDERS: PCP Family Medicine; Referring Provider Internal Medicine Gastroenterology; Visit Provider Internal Medicine Gastroenterology
DX: K76.0 Fatty (change of) liver, not elsewhere classified (principal); I86.8 Varicose veins of other specified sites
CPT/HCPCS: 36415; 82533; 84439; 84443; 84481

== ENCOUNTER → 2023-09-28 | Outpatient (CLI) | payer OTHER, SELFPAY ==
--- NOTE | 2023-09-28 07:52 | US_ITS ---
STUDY: ABDOMINAL ULTRASOUND - RIGHT UPPER QUADRANT; ELASTOGRAPHY REASON FOR VISIT: Male, 38 years old. Fatty infiltration of the liver. TECHNIQUE: Ultrasound evaluation of the right upper quadrant was performed with real-time and static nye-scale imaging. Point quantification shear wave elastography was performed ([employer]). TECHNICAL QUALITY: Adequate. COMPARISON: Comparison is made with prior study dated August 20, 2022. FINDINGS: Liver: The liver measures 16.6 cm. There is increased echogenicity consistent with fatty infiltration. The bile ducts are within normal limits. There is hepatic color flow. The direction of portal flow is hepatopetal. There is no demonstrated mass lesion. Median liver stiffness measured 5.9 kPa. Gallbladder: Normal distended gallbladder. The gallbladder wall measures 1.6 mm. There is a negative sonographic Andres''s sign. There is no pericholecystic fluid. There are no gallstones. Common Bile Duct (C.B.D.): The common bile duct measures 3.1 mm. Pancreas: There is normal echogenicity of the visualized pancreas. There is no demonstrated pancreatic mass or cyst. Right Kidney: Normal size of the right kidney. The right kidney measures 11.8 cm x 5.5 cm x 5.6 cm. Normal renal cortex. The right cortex measures 1.2 cm. There is no demonstrated renal mass or cyst. There is no right hydronephrosis. US/ABD Limited w/ Elastography IMPRESSION: 1. Liver stiffness measures 5.9 kPa compatible with F2-F3 (Mild to moderate liver fibrosis) Metavir score. Electronically Signed: Arnaud Banegas MD at 9:28 EDT ,
== END | disposition home or self-care (01) ==
LOC: US 07:52
PROVIDERS: PCP Family Medicine; Referring Provider Internal Medicine Gastroenterology; Visit Provider Internal Medicine Gastroenterology
DX: K76.0 Fatty (change of) liver, not elsewhere classified (principal)
CPT/HCPCS: 76705; 76981

== ENCOUNTER → 2023-10-08 | Outpatient (CLI) | payer OTHER, SELFPAY ==
[2023-10-08 07:36] LABS: Absolute Lymphocyte Count 1.87 X10^3/uL (0.83-4.51); Absolute Neutrophil Count 4.3 X10^3/uL (2.0-7.7); Basophil# 0.04 X10^3/uL; Basophil% 0.6 % (0-1); Eosinophil# 0.17 X10^3/uL; Eosinophils% 2.4 % (0-5); Hematocrit 41.7 % (40-54); Hemoglobin 14.6 g/dL (13.0-16.5); Lymphocyte # 1.87 X10^3/ul (0.83-4.51); Lymphocyte % 26.6 % (19-41); Mean Corpuscular Hgb 31.1 pg (27.0-32.0); Mean Corpuscular Volume 88.9 fL (80-94); Mean Platelet Vol. 9.5 fl (6.2-12.0); Monocyte# 0.65 X10^3/uL; Monocyte% 9.2 % (0-10); NRBC Flagged by Analyzer 0 % (0-5); Neutrophil # 4.28 X10^3/uL (2.7-7.7); Neutrophil % 60.9 % (47-70); Platelet Count 265 K/mm3 (150-450); RBC Distribution Width CV 11.8 % (11.6-14.6); RBC Distribution Width SD 37.6 fl (35.1-43.9); Red Blood Count 4.69 M/mm3 (4.6-6.2)
[2023-10-08 08:11] LABS: ALB/GLOB Ratio 1.2 RATIO (0.9-2.4); AST(SGOT) 24 U/L (15-37); Alanine Aminotransfer ALT/SGPT 45 U/L (16-61); Alkaline Phosphatase 73 U/L (45-117); Anion Gap 3 (5-15); BUN 16 mg/dL (7-18); Calcium,Total 8.8 mg/dL (8.5-10.1); Chloride 109 mmol/L (98-107); EST Glomerular Filtration Rate 116 mL/min (>60); Est Glom Filt Rate - Afr Amer 141 mL/min (>60); Globulin 3.2 g/dL (2.2-4.2); Glucose 92 mg/dL (74-106); Potassium 3.7 mmol/L (3.5-5.1); Protein, Total 7.2 g/dL (6.4-8.2); Sodium Level 138 mmol/L (136-145)
== END | disposition home or self-care (01) ==
LOC: LAB 06:51
PROVIDERS: PCP Family Medicine; Referring Provider Internal Medicine Rheumatology; Visit Provider Internal Medicine Rheumatology
DX: L40.59 Other psoriatic arthropathy (principal); R76.8 Other specified abnormal immunological findings in serum; Z79.899 Other long term (current) drug therapy
CPT/HCPCS: 36415; 80053; 85025

== ENCOUNTER → 2023-11-29 | Outpatient (CLI) | payer BC, SELFPAY ==
[2023-11-29 09:53] LABS: Absolute Lymphocyte Count 1.72 X10^3/uL (0.83-4.51); Absolute Neutrophil Count 4.4 X10^3/uL (2.0-7.7); Basophil# 0.03 X10^3/uL; Basophil% 0.4 % (0-1); Eosinophil# 0.19 X10^3/uL; Eosinophils% 2.8 % (0-5); Hematocrit 40.2 % (40-54); Hemoglobin 14.4 g/dL (13.0-16.5); Lymphocyte # 1.72 X10^3/ul (0.83-4.51); Lymphocyte % 25.1 % (19-41); Mean Corp Hgb Conc 35.8 g/dL (32-36); Mean Corpuscular Hgb 30.9 pg (27.0-32.0); Mean Corpuscular Volume 86.3 fL (80-94); Mean Platelet Vol. 9.6 fl (6.2-12.0); Monocyte# 0.55 X10^3/uL; NRBC Flagged by Analyzer 0 % (0-5); Neutrophil # 4.35 X10^3/uL (2.7-7.7); Neutrophil % 63.6 % (47-70); Platelet Count 244 K/mm3 (150-450); RBC Distribution Width CV 11.7 % (11.6-14.6); RBC Distribution Width SD 36.7 fl (35.1-43.9); Red Blood Count 4.66 M/mm3 (4.6-6.2); White Blood Count 6.9 K/mm3 (4.4-11.0)
[2023-11-29 10:29] LABS: ALB/GLOB Ratio 1.2 RATIO (0.9-2.4); AST(SGOT) 26 U/L (15-37); Alanine Aminotransfer ALT/SGPT 39 U/L (16-61); Albumin, Serum 3.9 g/dL (3.2-5.0); Alkaline Phosphatase 72 U/L (45-117); Anion Gap 8 (5-15); BUN 15 mg/dL (7-18); BUN/Creat Ratio 17.7 RATIO (10-20); Calcium,Total 8.9 mg/dL (8.5-10.1); Chloride 107 mmol/L (98-107); Creatinine, Serum 0.85 mg/dL (0.70-1.30); EST Glomerular Filtration Rate 109 mL/min (>60); Est Glom Filt Rate - Afr Amer 132 mL/min (>60); Globulin 3.3 g/dL (2.2-4.2); Glucose 97 mg/dL (74-106); Potassium 3.7 mmol/L (3.5-5.1); Protein, Total 7.2 g/dL (6.4-8.2); Sodium Level 139 mmol/L (136-145)
== END | disposition home or self-care (01) ==
PROVIDERS: PCP Family Medicine; Referring Provider Internal Medicine Rheumatology; Visit Provider Internal Medicine Rheumatology
DX: L40.59 Other psoriatic arthropathy (principal); Z79.899 Other long term (current) drug therapy; R76.8 Other specified abnormal immunological findings in serum
CPT/HCPCS: 36415; 80053; 85025

== ENCOUNTER → 2023-11-30 | Outpatient (CLI) | payer BC, SELFPAY ==
[2023-12-02 21:07] LABS: QNTFERON TB Mitogen Value > 10.00 IU/mL (.); QNTFERON TB Nil Value 0 IU/mL (.); QNTFERON TB1+ Ag Value 0.02 IU/mL (.); QNTFERON TB2+ Ag Value 0 IU/mL (.); QNTIFERON TB Positive Criteria Negative (Negative)
== END | disposition home or self-care (01) ==
LOC: MTLAB 10:21
PROVIDERS: PCP Family Medicine; Referring Provider Internal Medicine Rheumatology; Visit Provider Internal Medicine Rheumatology
DX: R76.8 Other specified abnormal immunological findings in serum (principal); Z79.899 Other long term (current) drug therapy
CPT/HCPCS: 36415; 86480

== ENCOUNTER → 2024-03-29 | Outpatient (CLI) | payer BC, SELFPAY ==
[2024-03-29 10:20] LABS: Hemoglobin 15.2 g/dL (13.0-16.5); Red Blood Count 4.78 M/mm3 (4.6-6.2); White Blood Count 5.8 K/mm3 (4.4-11.0)
[2024-03-29 10:21] LABS: Absolute Lymphocyte Count 1.59 X10^3/uL (0.83-4.51); Absolute Neutrophil Count 3.6 X10^3/uL (2.0-7.7); Basophil# 0.03 X10^3/uL; Basophil% 0.5 % (0-1); Eosinophil# 0.14 X10^3/uL; Eosinophils% 2.4 % (0-5); Hematocrit 41.9 % (40-54); Lymphocyte # 1.59 X10^3/ul (0.83-4.51); Lymphocyte % 27.4 % (19-41); Mean Corp Hgb Conc 36.3 g/dL (32-36); Mean Corpuscular Hgb 31.8 pg (27.0-32.0); Mean Corpuscular Volume 87.7 fL (80-94); Mean Platelet Vol. 9.5 fl (6.2-12.0); Monocyte# 0.46 X10^3/uL; Monocyte% 7.9 % (0-10); NRBC Flagged by Analyzer 0 % (0-5); Neutrophil # 3.58 X10^3/uL (2.7-7.7); Neutrophil % 61.6 % (47-70); Platelet Count 238 K/mm3 (150-450); RBC Distribution Width CV 11.6 % (11.6-14.6); RBC Distribution Width SD 37.2 fl (35.1-43.9)
[2024-03-29 12:47] LABS: ALB/GLOB Ratio 1.3 RATIO (0.9-2.4); AST(SGOT) 24 U/L (15-37); Alanine Aminotransfer ALT/SGPT 37 U/L (16-61); Albumin, Serum 4.4 g/dL (3.2-5.0); Alkaline Phosphatase 68 U/L (45-117); Anion Gap 6 (5-15); BUN 16 mg/dL (7-18); BUN/Creat Ratio 16.1 RATIO (10-20); Calcium,Total 9.1 mg/dL (8.5-10.1); Chloride 108 mmol/L (98-107); EST Glomerular Filtration Rate 90 mL/min (>60); Est Glom Filt Rate - Afr Amer 109 mL/min (>60); Globulin 3.3 g/dL (2.2-4.2); Glucose 123 mg/dL (74-106); Protein, Total 7.7 g/dL (6.4-8.2); Sodium Level 138 mmol/L (136-145)
== END | disposition home or self-care (01) ==
LOC: MTLAB 09:09
PROVIDERS: PCP Family Medicine; Referring Provider Internal Medicine Rheumatology; Visit Provider Internal Medicine Rheumatology
DX: L40.59 Other psoriatic arthropathy (principal); Z79.899 Other long term (current) drug therapy; R76.8 Other specified abnormal immunological findings in serum
CPT/HCPCS: 36415; 80053; 85025

== ENCOUNTER → 2024-06-23 | Outpatient (CLI) | payer BC, SELFPAY ==
[2024-06-23 13:24] LABS: Cholesterol 171 mg/dL (200); High Density Lipoprotein 40 mg/dL; Triglycerides 136 mg/dL; Very Low Density Lipoprotein 27 mg/dL (5-40)
== END | disposition home or self-care (01) ==
PROVIDERS: PCP Family Medicine; Referring Provider Family Medicine; Visit Provider Family Medicine
DX: Z00.00 Encounter for general adult medical examination without abnormal findings (principal)
CPT/HCPCS: 36415; 80061

== ENCOUNTER → 2024-09-15 | Outpatient (CLI) | payer BC, SELFPAY ==
[2024-09-15 18:01] LABS: Absolute Lymphocyte Count 1.59 X10^3/uL (0.83-4.51); Absolute Neutrophil Count 3.6 X10^3/uL (2.0-7.7); Basophil# 0.02 X10^3/uL; Basophil% 0.3 % (0-1); Eosinophil# 0.13 X10^3/uL; Eosinophils% 2.2 % (0-5); Hematocrit 41.5 % (40-54); Lymphocyte # 1.59 X10^3/ul (0.83-4.51); Lymphocyte % 27.1 % (19-41); Mean Corp Hgb Conc 36.1 g/dL (32-36); Mean Corpuscular Hgb 31.5 pg (27.0-32.0); Mean Corpuscular Volume 87.2 fL (80-94); Mean Platelet Vol. 9.8 fl (6.2-12.0); Monocyte# 0.52 X10^3/uL; Monocyte% 8.9 % (0-10); NRBC Flagged by Analyzer 0 % (0-5); Neutrophil # 3.58 X10^3/uL (2.7-7.7); Neutrophil % 61.2 % (47-70); Platelet Count 274 K/mm3 (150-450); RBC Distribution Width CV 11.8 % (11.6-14.6); RBC Distribution Width SD 37.9 fl (35.1-43.9); Red Blood Count 4.76 M/mm3 (4.6-6.2); White Blood Count 5.9 K/mm3 (4.4-11.0)
[2024-09-15 18:05] LABS: ALB/GLOB Ratio 1.7 RATIO (0.9-2.4); AST(SGOT) 27 U/L (<=37); Alanine Aminotransfer ALT/SGPT 30 U/L (<=46); Albumin, Serum 4.8 g/dL (3.5-5.0); Alkaline Phosphatase 74 U/L (40-129); Anion Gap 10 (5-15); BUN 18 mg/dL (4-19); BUN/Creat Ratio 17.6 RATIO (10-20); Calcium,Total 9.8 mg/dL (7.6-11.0); Carbon Dioxide 23.7 mmol/L (21.0-32.0); Chloride 105 mmol/L (98-108); Creatinine, Serum 1.04 mg/dL (0.70-1.20); EST Glomerular Filtration Rate 95 (>60); Globulin 2.9 g/dL (2.2-4.2); Glucose 93 mg/dL (70-99); Potassium 4.2 mmol/L (3.3-5.1); Protein, Total 7.7 g/dL (5.9-8.4); Sodium Level 138 mmol/L (133-145)
== END | disposition home or self-care (01) ==
PROVIDERS: PCP Family Medicine; Referring Provider Internal Medicine Rheumatology; Visit Provider Internal Medicine Rheumatology
DX: L40.59 Other psoriatic arthropathy (principal); Z79.899 Other long term (current) drug therapy; R76.8 Other specified abnormal immunological findings in serum
CPT/HCPCS: 36415; 80053; 85025

== ENCOUNTER → 2025-03-14 | Outpatient (CLI) | payer BC, SELFPAY ==
[2025-03-14 10:27] LABS: Hematocrit 42.3 % (40-54); Hemoglobin 14.8 g/dL (13.0-16.5); Immature Granulocytes Count 0.010 X10^3/uL (0.0-0.0); Mean Corp Hgb Conc 35.0 g/dL (32-36); Mean Corpuscular Volume 87.9 fL (80-94); Mean Platelet Vol. 9.6 fl (6.2-12.0); NRBC Flagged by Analyzer 0 % (0-5); Platelet Count 256 K/mm3 (150-450); RBC Distribution Width CV 11.8 % (11.6-14.6); RBC Distribution Width SD 37.7 fl (35.1-43.9); Red Blood Count 4.81 M/mm3 (4.6-6.2); White Blood Count 5.6 K/mm3 (4.4-11.0)
[2025-03-14 10:59] LABS: AST(SGOT) 30 U/L (<=37); Alanine Aminotransfer ALT/SGPT 37 U/L (<=46); Albumin, Serum 4.8 g/dL (3.5-5.0); Alkaline Phosphatase 66 U/L (40-129); Anion Gap 12 (5-15); BUN 14 mg/dL (4-19); BUN/Creat Ratio 15.6 RATIO (10-20); Calcium,Total 9.6 mg/dL (7.6-11.0); Carbon Dioxide 24.1 mmol/L (21.0-32.0); Chloride 103 mmol/L (98-108); Globulin 2.8 g/dL (2.2-4.2); Glucose 98 mg/dL (70-99); Potassium 4.4 mmol/L (3.3-5.1)
[2025-03-14 11:01] LABS: CRP < 3.00 mg/L (0.0-3.0)
== END | disposition home or self-care (01) ==
LOC: MTLAB 08:39
PROVIDERS: PCP Family Medicine; Referring Provider Internal Medicine Rheumatology; Visit Provider Internal Medicine Rheumatology
DX: L40.59 Other psoriatic arthropathy (principal); Z79.899 Other long term (current) drug therapy; R76.89 Other specified abnormal immunological findings in serum
CPT/HCPCS: 36415; 80053; 85025; 85652; 86140

== ENCOUNTER → 2025-04-04 | Outpatient (CLI) | payer BC, SELFPAY ==
--- NOTE | 2025-04-04 10:35 | RAD_ITS ---
PROCEDURE: L/S SPINE MIN 4 VIEWS 04/04/2025 REASON FOR EXAM: PAIN TECHNIQUE: Procedure Code: [id number] Modality: DX Procedure: L/S SPINE MIN 4 VIEWS COMPARISON: None FINDINGS: Alignment: S1 is transitional with a rudimentary disc space at S1/S2. Very mild curvature lumbar spine to the left centered at L4. Lumbar lordosis is preserved. Retrolisthesis L5 with respect to S1 of approximately 7 mm. Vertebra/discs: No fracture. Moderate disc space narrowing posteriorly at L4/5 and L5/S1. RAD/L/S Spine Min 4 Views IMPRESSION: 1. Mild curvature lumbar spine to the left centered at L4. 2. Transitional lumbosacral junction. Retrolisthesis at the lumbosacral junct ion with disc space narrowing L4/5 and L5/S1. Reading Location: [id number]
== END | disposition home or self-care (01) ==
LOC: MTRAD 10:33
PROVIDERS: PCP Family Medicine; Referring Provider Internal Medicine Rheumatology; Visit Provider Internal Medicine Rheumatology
DX: L40.59 Other psoriatic arthropathy (principal); Z79.899 Other long term (current) drug therapy
CPT/HCPCS: 72110